=== PATIENT | female | born 1960 | race Caucasian/White ===

== ENCOUNTER 2021-01-28 10:14 | Outpatient (REF) | payer OTHER, SELFPAY ==
[2021-01-28 10:55] LABS: Blood Urea Nitrogen 23 mg/dL (9-16)
== END 2021-01-28 10:15 | disposition home or self-care (01) ==
LOC: HO.LNP 10:14
PROVIDERS: PCP Internal Medicine; Visit Provider Internal Medicine
DX: R79.9 Abnormal finding of blood chemistry, unspecified (principal)
CPT/HCPCS: 84520

== ENCOUNTER 2021-06-09 10:15 | Outpatient (REF) | payer OTHER, SELFPAY ==
[2021-06-09 10:37] LABS: Estimated Average Glucose 117 mg/dL; Hemoglobin A1c % 5.7 %
[2021-06-09 10:59] LABS: Alanine Aminotransferase 26 U/L (0-31); Albumin Level 4.5 g/dL (3.5-5.0); Alkaline Phosphatase 109 U/L (39-117); Aspartate Amino Transferase 28 U/L (5-31); Bilirubin Direct 0.3 mg/dL (0.0-0.5); Bilirubin Total 0.7 mg/dL (0.0-1.0); Cholesterol 170 mg/dL; Glucose Fasting 101 mg/dL (60-99); HDL Cholesterol 81 mg/dL; LDL Cholesterol Calculated 70 mg/dl; Total Protein 7.4 g/dL (6.5-8.0); Triglycerides 95 mg/dL
[2021-06-09 11:28] LABS: Reflex LDLD? No
== END 2021-06-09 10:16 | disposition home or self-care (01) ==
LOC: HO.LNP 10:15
PROVIDERS: Visit Provider Internal Medicine
DX: R73.09 Other abnormal glucose (principal); E78.00 Pure hypercholesterolemia, unspecified
CPT/HCPCS: 80061; 80076; 82947; 83036

== ENCOUNTER 2021-07-04 11:46 | Day surgery (SDC) | payer OTHER, SELFPAY ==
[2021-06-30 10:19] VITALS: BMI 35.4
--- NOTE | 2021-07-03 10:48 | HO.ANESPROP2 ---
Documented by User: Lacey Jackson 07/03/21 10:49 HPI - Anesthesia Eval Consult details Narrative: 61yo F for Colonoscopy PMFSH Past Medical History Medical History Elevated cholesterol HTN (hypertension) Hx of gout Surgical History Surgical History H/O colonoscopy Hx of section Social History Social History Patient Tobacco Use Status: Tobacco use Unknown Advance Directives Information Provided: No Meds Allergies Allergy/AdvReac Type Severity Reaction Status Date / Time lisinopril Allergy Unknown Unknown Verified 07/04/21 12:27 Home Medications Medication Instructions Recorded Confirmed Last Taken Type calcium carbonate 600 mg(1,500 1 tab PO DAILY 06/30/21 06/30/21 Unknown History mg)-vitamin D3 800 unit chewable tablet (Caltrate 600 plus D) cod liver oil 1 cap PO DAILY 06/30/21 06/30/21 06/27/21 History glucosamine sulfate 500 mg tablet 500 mg PO TID 06/30/21 06/30/21 06/27/21 History (Glucosamine) lecithin 1,200 mg capsule 1,200 mg PO DAILY 06/30/21 06/30/21 Unknown History omega-3 fatty acids-vitamin E 1 cap PO DAILY 06/30/21 06/30/21 06/27/21 History 1,000 mg-5 unit capsule allopurinol 300 mg tablet 1 tab PO DAILY 07/04/21 07/04/21 Unknown History amlodipine 5 mg tablet 1 tab PO DAILY 07/04/21 07/04/21 07/04/21 06:30 History atorvastatin 20 mg tablet 1 tab PO DAILY 07/04/21 07/04/21 Unknown History valsartan 320 1 tab PO DAILY 07/04/21 07/04/21 07/04/21 06:30 History mg-hydrochlorothiazide 12.5 mg tablet Exam Exam Date and Time: July 03, 2021 1048 Height,Weight and Vital Signs: Height 5 ft 2 in Weight 87.997 kg Assessment and Plan Assessment Anesthesia Assessment: Chart Reviewed Documented by User: Lizzie Alejandro 07/04/21 12:55 PMFSH Past Medical History Medical History Elevated cholesterol HTN (hypertension) Hx of gout Functional capacity: independent ambulation Patient : No Family History Family history of problems with anesthesia: No Surgical History Surgical History H/O colonoscopy Hx of section Social History Social History Patient Tobacco Use Status: Tobacco use Unknown Advance Directives Information Provided: No Meds Allergies Allergy/AdvReac Type Severity Reaction Status Date / Time lisinopril Allergy Unknown Unknown Verified 07/04/21 12:27 Home Medications Medication Instructions Recorded Confirmed Last Taken Type calcium carbonate 600 mg(1,500 1 tab PO DAILY 06/30/21 06/30/21 Unknown History mg)-vitamin D3 800 unit chewable tablet (Caltrate 600 plus D) cod liver oil 1 cap PO DAILY 06/30/21 06/30/21 06/27/21 History glucosamine sulfate 500 mg tablet 500 mg PO TID 06/30/21 06/30/21 06/27/21 History (Glucosamine) lecithin 1,200 mg capsule 1,200 mg PO DAILY 06/30/21 06/30/21 Unknown History omega-3 fatty acids-vitamin E 1 cap PO DAILY 06/30/21 06/30/21 06/27/21 History 1,000 mg-5 unit capsule allopurinol 300 mg tablet 1 tab PO DAILY 07/04/21 07/04/21 Unknown History amlodipine 5 mg tablet 1 tab PO DAILY 07/04/21 07/04/21 07/04/21 06:30 History atorvastatin 20 mg tablet 1 tab PO DAILY 07/04/21 07/04/21 Unknown History valsartan 320 1 tab PO DAILY 07/04/21 07/04/21 07/04/21 06:30 History mg-hydrochlorothiazide 12.5 mg tablet Exam Airway TM Dist: >3cm Neck ROM: Full Heart: RRR Lungs: CTA Assessment and Plan Final Anesthetic Review Family History of Problems with Anesthesia: No
[2021-07-04 12:35] VITALS: BP 145/80; PULSE 107; RESP 16; TEMP 36.6; O2SAT 99
[2021-07-04] MEDS: Lactated Ringers 1,000 ML 100 ML IVCONT (12:44)
--- NOTE | 2021-07-04 13:12 | MHC.SHP ---
Pre-Procedural Eval Section A Date of Service: 07/04/21 The patient is an INPATIENT: No Changes since office visit: No Cold of Flu in the past 2 weeks, No New Medical Problems, No Changes in Medication and No Patient answered all questions The History & Physical has been completed within 30 days and I have reviewed it.: Yes Section B Chief Complaint: screening Allergies: Allergies Allergy/AdvReac Type Severity Reaction Status Date / Time lisinopril Allergy Unknown Unknown Verified 07/04/21 12:27 Plan I have reviewed the history and physical and performed a pertinent physical examination on my patient. No changes have occurred unless specified.
--- NOTE | 2021-07-04 13:32 | P.BOP_ITS ---
Brief Operative Note Date of Service: 07/04/21 Pre-op diagnosis: screening Post-op diagnosis: same Surgeon: Alberto Ayala Anesthesia: MAC Was an [facility] used for this Procedure?: No Estimated blood loss (mL): 0 Pathology: none sent Condition: stable Disposition: PACU
[2021-07-04 13:33] VITALS: BP 98/52; PULSE 69; RESP 16; TEMP 36.3; O2SAT 100
[2021-07-04 13:45] VITALS: BP 110/56; PULSE 73; RESP 16; TEMP 36.3; O2SAT 99
--- NOTE | 2021-07-04 13:56 | OP_ITS ---
SURGEON: Alberto Ayala MD INDICATIONS: Colon cancer screening. PREOPERATIVE DIAGNOSIS: POSTOPERATIVE DIAGNOSIS: PROCEDURE PERFORMED: Colonoscopy to the terminal ileum. ESTIMATED BLOOD LOSS: COMPLICATIONS: ANESTHESIA: Monitored anesthesia care. ASSISTANTS: SPECIMENS: DESCRIPTION OF PROCEDURE: History and physical performed. The risks and benefits of the procedure were explained to the patient, and informed consent was obtained. The patient was placed in left lateral decubitus position. A digital rectal exam was performed and it was found to be normal. The Olympus pediatric video colonoscope was introduced into the rectum and advanced to the cecum without difficulty. The cecum was identified by transillumination, palpation, and identification of ileocecal valve. Examination was performed. The scope was removed. She tolerated the procedure well and was transferred to the recovery area in stable condition. FINDINGS: The terminal ileum was normal. The visualized colonic mucosa was normal. The quality of the prep was good. No polyps were identified. There was a 3 cm lipoma in the right colon. Retroflexed examination showed some small internal hemorrhoids. IMPRESSION: Normal colonoscopy. RECOMMENDATIONS: 1. Follow up as needed. 2. Repeat colonoscopy is recommended in 10 years for average-risk individuals. MD ELIU Pena/ZHANG / [phone]
== END 2021-07-04 14:40 | disposition home or self-care (01) ==
PROVIDERS: PCP Internal Medicine; Visit Provider Internal Medicine Gastroenterology
PROC: 0DJD8ZZ Inspection of Lower Intestinal Tract, Via Natural or Artificial Opening Endoscopic (ICD-10-PCS; CPT 45378; principal; 2021-07-04 13:20)
DX: Z12.11 Encounter for screening for malignant neoplasm of colon (principal); K64.8 Other hemorrhoids; D17.5 Benign lipomatous neoplasm of intra-abdominal organs; I10 Essential (primary) hypertension; E78.00 Pure hypercholesterolemia, unspecified; Z79.899 Other long term (current) drug therapy
CPT/HCPCS: 45378

== ENCOUNTER 2021-07-24 12:46 | Outpatient (REF) | payer OTHER, SELFPAY ==
--- NOTE | ~2021-07-24 | MM_ITS ---
EXAMINATION: BONE DENSITOMETRY CLINICAL INDICATION: Estrogen deficiency. COMPARISON: None (current study represents initial baseline exam). TECHNIQUE: Using a [employer] DXA System (software version: 13.1) manufactured by [employer], dual-energy x-ray absorptiometry was performed of the spine and left hip. The images are of good technical quality. Summary results are attached. FINDINGS: AP SPINE L1-L4: BMD 1.231 g/cm2, Z-score 0.9, T-score 0.4, normal. LEFT FEMUR, NECK: BMD 0.926 g/cm2, Z-score 0.0, T-score -0.8, normal. LEFT FEMUR, TOTAL: BMD 1.084 g/cm2, Z-score 1.0, T-score 0.6, normal. IDENTIFIED RISK FACTORS: Menopause. HISTORY OF FRACTURE: None listed. MEDICATIONS: Calcium supplements or multivitamin, vitamin D. MM/XR DEXA axial skeleton IMPRESSION: 1. DIAGNOSIS: Normal bone density based on the lowest T-score value of -0.8 in the femoral neck applying World Health Organization criteria. 2. 10-YEAR FRACTURE RISK PREDICTION, FRAX: Major osteoporotic fracture (clinical spine, forearm, hip or shoulder) 6.8%. Hip fracture 0.3%. 3. Treatment Recommendations: NOF guidelines recommend consideration for treatment in postmenopausal women and men age 50 and older presenting with the following: -A hip or vertebral (clinical or morphometric) fracture. -T-score less than or equal to -2.5 at the femoral neck or spine after appropriate evaluation to exclude secondary causes. -Low bone mass at the hip or spine and a 10-year fracture probability by FRAX of greater than or equal to 3% for hip fracture or greater than or equal to 20% for major osteoporotic fracture based on the [place] adapted WHO algorithm. 4. Other Recommendations: All treatment decisions require clinical judgment and consideration of individual patient factors, including patient preferences, comorbidities, previous drug use, risk factors not captured in the FRAX model (e.g. frailty, falls, vitamin D deficiency, increased bone turnover, interval significant decline in bone density) and possible under or overestimation of fracture risk by FRAX. FUTURE SCAN RECOMMENDATION: People with diagnosed cases of osteoporosis or at high risk for fracture should have regular bone mineral density tests. For patients eligible for Medicare, routine testing is allowed once every 2 years. The testing frequency can be increased to one year for patients who have rapidly progressing disease, those who are receiving or discontinuing medical therapy to restore bone mass, or have additional risk factors.
== END 2021-07-24 12:47 | disposition home or self-care (01) ==
LOC: HO.MAMMO 12:46
PROVIDERS: PCP Internal Medicine; Visit Provider Internal Medicine
DX: Z13.820 Encounter for screening for osteoporosis (principal); E28.39 Other primary ovarian failure; Z78.0 Asymptomatic menopausal state
CPT/HCPCS: 77080

== ENCOUNTER 2021-12-22 11:13 | Outpatient (REF) | payer OTHER, SELFPAY ==
[2021-12-22 11:16] LABS: MANUAL DIFF FLAG NO
[2021-12-22 11:24] LABS: Basophils Absolute Auto 0.1 X10*3/uL (0.0-0.2); Basophils Percent Auto 0.9 % (0-2); Eosinophils Absolute Auto 0.4 X10*3/uL (0.0-0.4); Eosinophils Percent Auto 4.9 % (0-4); Hematocrit 37.1 % (37.0-47.0); Hemoglobin 11.7 g/dl (12.0-16.0); Imm Gran Abs Auto 0.09 X10*3/uL (0.00-0.03); Imm Gran Pct Auto 1.1 % (0.0-0.4); Lymphocytes Absolute Auto 1.7 X10*3/uL (1.2-4.9); Lymphocytes Percent Auto 20.1 % (20-40); Mean Corpuscular HGB Conc 31.5 g/dl (31.0-35.0); Mean Corpuscular Hemoglobin 28.7 pg (27.0-33.0); Mean Corpuscular Volume 91.2 fL (80.0-98.0); Mean Platelet Volume 10.6 fL (9.4-12.3); Monocytes Absolute Auto 0.8 X10*3/uL (0.1-1.2); Monocytes Percent Auto 9.3 % (2-11); Neutrophils Absolute Auto 5.5 x10*3/uL (2.0-8.3); Neutrophils Percent Auto 63.7 % (45-73); Platelet Count 176 X10*3/uL (160-400); Red Blood Count 4.07 X10*6/uL (4.20-5.50); Red Cell Distribution Width 15.5 % (11.0-16.0); White Blood Count 8.6 X10*3/uL (4.8-10.8)
[2021-12-22 11:35] LABS: Estimated Average Glucose 114 mg/dL; Hemoglobin A1c % 5.6 %
[2021-12-22 11:48] LABS: Appearance Urine CLEAR; Color Urine YELLOW; Glucose Urine UA NEG (NEG); Leukocyte Esterase Urine NEG (NEG); Nitrite Urine NEG (NEG); Urine Blood NEG (NEG); Urine Ketones NEG (NEG); Urine Protein NEG (NEG-TRACE)
[2021-12-22 12:28] LABS: Creatinine Urine 82.53 mg/dL; Microalbum/Creatinine Ratio Ur 12.1 ug/mg cr
[2021-12-22 12:31] LABS: Alanine Aminotransferase 27 U/L (0-31); Albumin Level 4.5 g/dL (3.5-5.0); Alkaline Phosphatase 102 U/L (39-117); Anion Gap 14 (12-20); Aspartate Amino Transferase 22 U/L (5-31); Bilirubin Total 0.6 mg/dL (0.0-1.0); Blood Urea Nitrogen 33 mg/dL (9-16); Calcium 10.1 mg/dL (8.4-10.2); Carbon Dioxide 28 mmol/L (22-29); Chloride 105 mmol/L (96-108); Cholesterol 163 mg/dL; Estimated Glomerular Filt Rate > 60; Glucose Fasting 102 mg/dL (60-99); HDL Cholesterol 64 mg/dL; LDL Cholesterol Calculated 86 mg/dl; Potassium 3.8 mmol/L (3.3-5.1); Sodium 143 mmol/L (135-145); Total Protein 7.4 g/dL (6.5-8.0); Triglycerides 65 mg/dL
== END 2021-12-22 11:14 | disposition home or self-care (01) ==
LOC: HO.LNP 11:13
PROVIDERS: PCP Internal Medicine; Visit Provider Internal Medicine
DX: Z00.00 Encounter for general adult medical examination without abnormal findings (principal); I10 Essential (primary) hypertension; R73.03 Prediabetes; E78.00 Pure hypercholesterolemia, unspecified
CPT/HCPCS: 80053; 80061; 81003; 82043; 83036; 85025

== ENCOUNTER 2022-04-21 11:20 | Outpatient (REF) | payer OTHER, SELFPAY ==
[2022-04-21 11:59] LABS: Blood Urea Nitrogen 20 mg/dL (9-16); Estimated Glomerular Filt Rate > 60
== END 2022-04-21 11:21 | disposition home or self-care (01) ==
LOC: HO.LNP 11:20
PROVIDERS: Visit Provider Internal Medicine
DX: R79.9 Abnormal finding of blood chemistry, unspecified (principal)
CPT/HCPCS: 82565; 84520

== ENCOUNTER 2022-08-07 10:42 | Outpatient (REF) | payer OTHER, SELFPAY ==
[2022-08-07 11:06] LABS: Alanine Aminotransferase 27 U/L (0-31); Albumin Level 4.5 g/dL (3.5-5.0); Alkaline Phosphatase 92 U/L (39-117); Aspartate Amino Transferase 24 U/L (5-31); Bilirubin Direct 0.2 mg/dL (0.0-0.5); Bilirubin Total 0.5 mg/dL (0.0-1.0); Cholesterol 166 mg/dL; Glucose Fasting 99 mg/dL (60-99); HDL Cholesterol 60 mg/dL; LDL Cholesterol Calculated 92 mg/dl; Total Protein 7.2 g/dL (6.5-8.0); Triglycerides 71 mg/dL
[2022-08-07 11:41] LABS: Estimated Average Glucose 114 mg/dL; Hemoglobin A1c % 5.6 %
== END 2022-08-07 10:43 | disposition home or self-care (01) ==
LOC: HO.LNP 10:42
PROVIDERS: Visit Provider Internal Medicine
DX: R73.03 Prediabetes (principal); E78.00 Pure hypercholesterolemia, unspecified
CPT/HCPCS: 80061; 80076; 82947; 83036

== ENCOUNTER 2023-02-19 11:01 | Outpatient (REF) | payer OTHER, SELFPAY ==
[2023-02-19 11:07] LABS: MANUAL DIFF FLAG NO
[2023-02-19 11:46] LABS: Basophils Absolute Auto 0.1 X10*3/uL (0.0-0.2); Basophils Percent Auto 0.7 % (0-2); Eosinophils Absolute Auto 0.2 X10*3/uL (0.0-0.4); Eosinophils Percent Auto 2.9 % (0-4); Hematocrit 39.6 % (37.0-47.0); Hemoglobin 12.7 g/dl (12.0-16.0); Imm Gran Abs Auto 0.05 X10*3/uL (0.00-0.03); Imm Gran Pct Auto 0.7 % (0.0-0.4); Lymphocytes Absolute Auto 1.5 X10*3/uL (1.2-4.9); Lymphocytes Percent Auto 20.2 % (20-40); Mean Corpuscular HGB Conc 32.1 g/dl (31.0-35.0); Mean Corpuscular Hemoglobin 28.2 pg (27.0-33.0); Mean Platelet Volume 11.1 fL (9.4-12.3); Monocytes Absolute Auto 0.6 X10*3/uL (0.1-1.2); Monocytes Percent Auto 7.8 % (2-11); Neutrophils Absolute Auto 5.1 x10*3/uL (2.0-8.3); Neutrophils Percent Auto 67.7 % (45-73); Platelet Count 188 X10*3/uL (160-400); Red Cell Distribution Width 15.2 % (11.0-16.0); White Blood Count 7.6 X10*3/uL (4.8-10.8)
[2023-02-19 11:59] LABS: Alanine Aminotransferase 20 U/L (0-31); Albumin Level 4.5 g/dL (3.5-5.0); Alkaline Phosphatase 90 U/L (39-117); Anion Gap 14 (12-20); Aspartate Amino Transferase 21 U/L (5-31); Bilirubin Total 0.9 mg/dL (0.0-1.0); Blood Urea Nitrogen 25 mg/dL (9-16); Calcium 9.9 mg/dL (8.4-10.2); Carbon Dioxide 28 mmol/L (22-29); Chloride 105 mmol/L (96-108); Cholesterol 147 mg/dL; Estimated Glomerular Filt Rate > 60; Glucose Fasting 105 mg/dL (60-99); HDL Cholesterol 61 mg/dL; LDL Cholesterol Calculated 74 mg/dl; Sodium 143 mmol/L (135-145); Triglycerides 64 mg/dL
[2023-02-19 12:01] LABS: Appearance Urine Clear; Color Urine Yellow; Glucose Urine UA Negative (Negative); Leukocyte Esterase Urine Trace (Negative); Nitrite Urine Negative (Negative); UMIC TRIGGER UACC YES; Urine Blood Negative (Negative); Urine Ketones Negative (Negative); Urine Protein Negative (Neg-Trace)
[2023-02-19 12:06] LABS: Bacteria Urine None Seen (None Seen); Hyaline Casts Urine 0-2 /LPF (0-2); RBC Urine 0-2 /HPF (0-2); Squamous Epithelial Cell Urine 0-2 /HPF (0-2); WBC Urine 0-5 /HPF (0-5)
[2023-02-19 12:08] LABS: Estimated Average Glucose 120 mg/dL; Hemoglobin A1c % 5.8 %
[2023-02-19 12:16] LABS: Creatinine Urine 71.91 mg/dL; Microalbumin Urine < 5.0 mg/L
== END 2023-02-19 11:02 | disposition home or self-care (01) ==
LOC: HO.LNP 11:01
PROVIDERS: Visit Provider Internal Medicine
DX: Z00.00 Encounter for general adult medical examination without abnormal findings (principal); I10 Essential (primary) hypertension; R73.03 Prediabetes; E78.00 Pure hypercholesterolemia, unspecified
CPT/HCPCS: 80053; 80061; 81001; 82043; 83036; 85025

== ENCOUNTER 2023-08-19 10:54 | Outpatient (REF) | payer OTHER, SELFPAY ==
[2023-08-19 10:57] LABS: MANUAL DIFF FLAG NO
[2023-08-19 11:53] LABS: Glucose Fasting 100 mg/dL (60-99)
[2023-08-19 12:04] LABS: Basophils Absolute Auto 0.1 X10*3/uL (0.0-0.2); Basophils Percent Auto 1.1 % (0-2); Eosinophils Absolute Auto 0.2 X10*3/uL (0.0-0.4); Hemoglobin 12.3 g/dl (12.0-16.0); Imm Gran Abs Auto 0.08 X10*3/uL (0.00-0.03); Imm Gran Pct Auto 1.1 % (0.0-0.4); Lymphocytes Absolute Auto 1.4 X10*3/uL (1.2-4.9); Lymphocytes Percent Auto 20.2 % (20-40); Mean Corpuscular HGB Conc 32.4 g/dl (31.0-35.0); Mean Corpuscular Hemoglobin 29.1 pg (27.0-33.0); Mean Corpuscular Volume 89.8 fL (80.0-98.0); Monocytes Absolute Auto 0.6 X10*3/uL (0.1-1.2); Monocytes Percent Auto 8.2 % (2-11); Neutrophils Absolute Auto 4.6 x10*3/uL (2.0-8.3); Neutrophils Percent Auto 66.4 % (45-73); Platelet Count 189 X10*3/uL (160-400); Red Blood Count 4.23 X10*6/uL (4.20-5.50); Red Cell Distribution Width 15.3 % (11.0-16.0)
[2023-08-19 12:20] LABS: Cholesterol 147 mg/dL (<200); HDL Cholesterol 62 mg/dL (>40); LDL Cholesterol Calculated 72 mg/dL (<100); Triglycerides 69 mg/dL (<150)
[2023-08-19 12:26] LABS: Estimated Average Glucose 117 mg/dL; Hemoglobin A1c % 5.7 % (<6.0)
[2023-08-19 12:33] LABS: Reflex LDLD? No
== END 2023-08-19 10:55 | disposition home or self-care (01) ==
LOC: HO.LNP 10:54
PROVIDERS: Visit Provider Internal Medicine
DX: R73.03 Prediabetes (principal); E78.00 Pure hypercholesterolemia, unspecified
CPT/HCPCS: 80061; 82947; 83036; 85025

== ENCOUNTER 2024-02-24 11:13 | Outpatient (REF) | payer OTHER, SELFPAY ==
[2024-02-24 11:29] LABS: MANUAL DIFF FLAG NO
[2024-02-24 12:14] LABS: Appearance Urine Clear; Color Urine Yellow; Glucose Urine UA Negative (Negative); Leukocyte Esterase Urine Small (1+) (Negative); Nitrite Urine Negative (Negative); Specific Gravity - Urine 1.025 (1.005-1.025); UMIC TRIGGER UACC YES; Urine Blood Negative (Negative); Urine Ketones Negative (Negative); Urine Protein Negative (Neg-Trace)
[2024-02-24 12:22] LABS: Estimated Average Glucose 117 mg/dL; Hemoglobin A1c % 5.7 % (<6.0)
[2024-02-24 12:25] LABS: Bacteria Urine None Seen (None Seen); Basophils Percent Auto 0.6 % (0-2); Eosinophils Absolute Auto 0.2 X10*3/uL (0.0-0.4); Eosinophils Percent Auto 3.3 % (0-4); Hematocrit 39.5 % (37.0-47.0); Hemoglobin 12.9 g/dl (12.0-16.0); Hyaline Casts Urine 0-2 /LPF (0-2); Imm Gran Abs Auto 0.08 X10*3/uL (0.00-0.03); Imm Gran Pct Auto 1.2 % (0.0-0.4); Lymphocytes Absolute Auto 1.5 X10*3/uL (1.2-4.9); Lymphocytes Percent Auto 21.1 % (20-40); Mean Corpuscular HGB Conc 32.7 g/dl (31.0-35.0); Mean Corpuscular Hemoglobin 29.2 pg (27.0-33.0); Mean Corpuscular Volume 89.4 fL (80.0-98.0); Mean Platelet Volume 11.1 fL (9.4-12.3); Monocytes Absolute Auto 0.6 X10*3/uL (0.1-1.2); Monocytes Percent Auto 8.4 % (2-11); Neutrophils Absolute Auto 4.5 x10*3/uL (2.0-8.3); Neutrophils Percent Auto 65.4 % (45-73); Platelet Count 194 X10*3/uL (160-400); RBC Urine 0-2 /HPF (0-2); Red Blood Count 4.42 X10*6/uL (4.20-5.50); UACC Culture Trigger YES; WBC Urine 0-5 /HPF (0-5); White Blood Count 6.9 X10*3/uL (4.8-10.8)
[2024-02-24 12:26] LABS: Alanine Aminotransferase 23 U/L (0-31); Albumin Level 4.4 g/dL (3.5-5.0); Alkaline Phosphatase 97 U/L (39-117); Anion Gap 13 (12-20); Aspartate Amino Transferase 21 U/L (5-31); Bilirubin Total 0.6 mg/dL (0.0-1.0); Blood Urea Nitrogen 25 mg/dL (9-16); Carbon Dioxide 29 mmol/L (22-29); Chloride 107 mmol/L (96-108); Cholesterol 140 mg/dL (<200); Estimated Glomerular Filt Rate > 60; Glucose Fasting 93 mg/dL (60-99); HDL Cholesterol 60 mg/dL (>40); LDL Cholesterol Calculated 65 mg/dL (<100); Sodium 145 mmol/L (135-145); Total Protein 7.3 g/dL (6.5-8.0); Triglycerides 75 mg/dL (<150)
[2024-02-24 12:58] LABS: Creatinine Urine 115.15 mg/dL; Microalbum/Creatinine Ratio Ur 8.6 ug/mg cr (<30)
== END 2024-02-24 11:14 | disposition home or self-care (01) ==
LOC: HO.LNP 11:13
PROVIDERS: Visit Provider Internal Medicine
DX: Z00.00 Encounter for general adult medical examination without abnormal findings (principal); I10 Essential (primary) hypertension; R73.03 Prediabetes; E78.00 Pure hypercholesterolemia, unspecified
CPT/HCPCS: 80053; 80061; 81001; 82043; 82570; 83036; 85025; 87086

== ENCOUNTER 2024-10-12 10:38 | Outpatient (REF) | payer OTHER, SELFPAY ==
[2024-10-12 12:08] LABS: Alanine Aminotransferase 34 U/L (0-31); Albumin Level 4.3 g/dL (3.5-5.0); Alkaline Phosphatase 103 U/L (39-117); Aspartate Amino Transferase 31 U/L (5-31); Bilirubin Direct 0.3 mg/dL (0.0-0.5); Bilirubin Total 0.7 mg/dL (0.0-1.0); Cholesterol 149 mg/dL (<200); Glucose Fasting 95 mg/dL (60-99); HDL Cholesterol 61 mg/dL (>40); LDL Cholesterol Calculated 72 mg/dL (<100); Triglycerides 81 mg/dL (<150)
[2024-10-12 12:48] LABS: Reflex LDLD? No
[2024-10-12 14:25] LABS: Estimated Average Glucose 117 mg/dL; Hemoglobin A1c % 5.7 % (<6.0); Total Hemoglobin (HGBA1C) 3107.1739 umol/L
== END 2024-10-12 10:39 | disposition home or self-care (01) ==
LOC: HO.LNP 10:38
PROVIDERS: Visit Provider Internal Medicine
DX: R73.09 Other abnormal glucose (principal); E78.00 Pure hypercholesterolemia, unspecified
CPT/HCPCS: 80061; 80076; 82947; 83036

== ENCOUNTER 2025-04-13 10:23 | Outpatient (REF) | payer OTHER, SELFPAY ==
[2025-04-13 10:26] LABS: MANUAL DIFF FLAG NO
--- OUTSIDE RECORDS SUMMARY | 2025-04-13 10:41 | XMS_ITS | Patient Health Record ---
Author Organization Bayron Olsen MD Address [address] [place], [place] [id number] Care Team Providers Care Geophysical E Logger Name Role Phone Bayron Olsen Primary Care Provider Allergies Allergen (clinical drug ingredient) Drug/Non Drug Allergy documented on EMR Reaction Allergy Type Onset Date Status lisinopril Lisinopril cough Drug Allergy Activ e Results Component Value Reference Range Notes Liver Panel Reviewed date:10/12/2024 12:55:58 PM Interpretation: Performing Lab:[facility], [address] [place] [id number] Notes/Report: Bilirubin Total 0.7 0.0-1.0 mg/dL Bilirubin Direct 0.3 0.0-0.5 mg/dL Aspartate Amino Transferase 31 5-31 U/L Alanine Aminotransferase 34 0-31 U/L Total Protein 7.0 6.5-8.0 g/dL Albumin Level 4.3 3.5-5.0 g/dL Alkaline Phosphatase 103 39-117 U/L Glucose Fasting Reviewed date:10/12/2024 12:53:52 PM Interpretation: Performing Lab:[facility], [address] [place] [phone] Notes/Report: Glucose Fasting 95 60-99 mg/dL Lipid Panel with Reflex Reviewed date:10/12/2024 12:56:08 PM Interpretation: Performing Lab:[facility], [address] [place] [phone] Notes/Report: Triglycerides 81 <150 mg/dL Desirable Triglyceride: less than 150 mg/dL Borderline High Triglyceride 150-199 mg/dL High Triglyceride: 200-499 mg/dL Very High Triglyceride: greater than or equal to 5OO mg/dL Cholesterol 149 <200 mg/dL Desirable Cholesterol: less than 200 mg/dL Borderline High Cholesterol: 200-239 mg/dL High Cholesterol: greater than 239 mg/dL LDL Cholesterol Calculated 72 <100 mg/dL Desirable LDL: less than 100 mg/dL Near Optimal/Above Optimal LDL: 110-129 mg/dL Borderline High LDL: 130-159 mg/dL High LDL: 160-189 mg/dL Very High LDL: greater than or equal to 190 mg/dL HDL Cholesterol 61 >40 mg/dL Desirable HDL: greater than 40 mg/dL Note: This HDL assay may give artificially low results in patients with liver disease. Hemoglobin A1c Reviewed date:10/12/2024 03:16:41 PM Interpretation: Performing Lab:[address] [phone] Notes/Report: Hemoglobin A1c % 5.7 <6.0 % Hemoglobin A1C Reference Range Adults: 4.8 - 6.0 % Non diabetic: < 6.0 % Goal: < 7.0 % Additional Action Suggested: > 8.0 % Note: Hemoglobin A1c results are invalid for patients with abnormal amounts of HbF. Blood transfusions may impact the HbA1c concentration in the patient sample. Estimated Average Glucose 117 eAG = Estimated average glucose which is %A1C expressed as average glucose, using the formula of the V7J-Usavrhe Average Glucose study (ADAG), Diabetes Care, Vol.31,#8, Jun. 2007 Occult Blood, Stool, Guaiac Reviewed date:04/17/2024 02:28:30 PM Interpretation:Negative Performing Lab: Notes/Report: Negative Occult Blood, Stool, Guaiac Neg MAMMOGRAM DIGITAL BILATERAL SCREEN Reviewed date:08/04/2024 01:16:54 PM Interpretation:Negative Performing Lab: Notes/Report: Negative Hold Gold Reviewed date:10/12/2024 12:56:18 PM Interpretation: Performing Lab:[address] [phone] Notes/Report: Hold Gold See Note Specimen held untested for 24 hours; Call to request Chemistry testing. Hold Gold (Not yet reviewed by provider) Interpretation: Performing Lab:[address] [phone] Notes/Report: Hold Gold See Note Specimen held untested for 24 hours; Call to request Chemistry testing. Reason For Referral No Information Medications Medication SIG (Take, Route, Frequency, Duration) Notes Start Date End Date Status Atorvastatin Calcium 20 MG TAKE ONE TABLET BY MOUTH EVERY DAY Active Nystatin 792004 UNIT/GM 1 application to affected area Externally Twice a day for 30 days 04/14/2012 Not-Taking Coricidin HBP 10-325-2 MG 2 tablets ever y 4 hours as needed Orally Five times a day Not-Taking Allopurinol 300 MG TAKE 1 TABLET BY ADINA TH EVERY DAY for 90 Active Lecithin 1200 MG 1 capsule Orally Onc e a day Not-Taking Ibuprofen 800 MG TAKE 1 TABLET BY ADINA TH 3 TIMES DAILY WITH FOOD. for 30 Active Mjjfua-Rjkgfywng-RAS Complex - Orally Active Caltrate 600+D 600-400 MG-UNIT 1 tablet with food Orally Once a day Active Valsartan-hydroCHLOROthia zide 160-12.5 MG TAKE 1 TABLET BY MOUTH EVERY DAY Active amLODIPine Besylate 5 MG TAKE 1 TABLET B Y MOUTH EVERY DAY Active Immunizations Vaccine Route Administration Date Status Comme nts DECLINED, FLU Unknown 10/31/2013 Administered Covid Vaccine Unknown 02/08/2021 Administered Moderna C VS Covid Vaccine Unknown 03/08/2021 Administered Moderna Shingrix Unknown 04/12/2021 [facility]ered [facility] TDaP Unknown 06/02/2023 Administered [facility] Prevnar 20 Unknown 07/10/2023 [facility]ered [facility] Flu Vaccine Unknown 08/16/2014 Refused Flu Vaccine Unknown 09/05/2015 Refused Fluarix Quadrivalent Unknown 09/15/2016 Refused Fluarix Quadrivalent Unknown 09/28/2017 Refused Fluarix Quadrivalent Unknown 10/11/2018 Refused TDaP Unknown 05/16/2019 Refused PPSV23 (Pnemovax) Unknown 05/16/2019 Refused Fluarix Quadrivalent Unknown 11/14/2019 Refused Fluarix Quadrivalent Unknown 08/26/2020 Refused PPSV23 (Pnemovax) Unknown 08/26/2020 Refused Shingrix Unknown 08/26/2020 Refused Fluarix Quadrivalent Unknown 09/26/2020 Refused Fluarix Quadrivalent Unknown 02/20/2022 Refused Social History Tobacco Use: Social History Observation Description Date Details (start date - stop date) Never Smoker NA - NA Tobacco Use/Smoking Question Answer Notes Patient is a nonsmoker Additional Findings: Tobacco Non-User Cu rrent non-smoker, currently using no form of tobacco Alcohol Screen Question Answer Notes Did you have a drink containing alcohol in the p ast year? No Points 0 Interpretation Negative Problems Problem Type SNOMED Code ICD Code Onset Dates Problem Status W/U Status Risk Notes Problem 57985824 Venous insuffici ency (I87.2) Active confirmed Problem 55340178 Essential hypert ension (I10) Active confirmed Problem 5162795 Prediabetes (R73.09) Active confirmed Problem 239887005 Estrogen deficie ncy (E28.39) Active confirmed Problem 947723551 Abnormal mammogr am of right breast (R92.8) Active confirmed Problem 343583348 Pure hypercholesterolemia (E78.00) Active confirmed Problem 148493642 BMI 37.0-37.9, a dult (Z68.37) Active confirmed Problem 24930061 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 Problem 58476677 Stasis dermatiti s of both legs (I87.2) Active confirmed Problem 145048698 Acute gout invol ving toe of left foot, unspecified cause (M10.9) Active confirmed Problem 558959911 Old tear of meni scus of left knee, unspecified meniscus, unspecified tear type (M23.207) Active confirmed Problem 720491771 Adult general me dical exam (Z00.00) Active confirmed Vital Signs Blood pressure diastolic 78 mm Hg 10/20/2024 Height 61.25 in 10/20/2024 Blood pressure systolic 120 mm Hg 10/20/2024 Weight 209 lbs 10/20/2024 BMI 39.16 kg/m2 10/20/2024 Encounters Encounter Location Date Provider Diagnosis Bayron Olsen MD [address] [place] [id number] 10/12/2024 Bayron Olsen Prediabetes R73.09 a nd Pure hypercholesterolemia E78.00 Bayron Olsen MD [address] [place] [id number] 04/13/2025 Bayron Olsen Blood tests for rout ine general physical examination Z00.00 ; Essential hypertension I10 ; Prediabetes R73.09 and Pure hypercholesterolemia E78.00 Bayron Olsen MD [address] [place] [id number] 04/17/2024 Bayron Olsen Fungal skin infectio n B36.9 ; Annual physical exam Z00.00 ; Essential hypertension I10 ; Pure hypercholesterolemia E78.00 ; Old tear of meniscus of left knee, unspecified meniscus, unspecified tear type M23.207 ; Prediabetes R73.09 ; Colon cancer screening Z12.11 and Depression screening Z13.31 Bayron Olsen MD [address] [place] [id number] 10/20/2024 Bayron Olsen Prediabetes R73.09 ; Pure hypercholesterolemia E78.00 ; Skin lesion of face L98.9 and Essential hypertension I10 Assessments Encounter Date Diagnosis (ICD Code) Assessment Notes Treatment Notes Treatment Clinical Notes Section Notes 10/12/2024 Prediabetes (ICD-10 - R73.09) 10/12/2024 Pure hypercholesterolemia (ICD-10 - E78.00) 04/13/[address] ine general physical examination (ICD-10 - Z00.00) 04/17/2024 Fungal skin infectio n (ICD-10 - B36.9) will try lamisil, will contnue to monitor 04/17/2024 Annual physical exam (ICD-10 - Z00.00) labs reviewed and discussed with patient 10/20/2024 Prediabetes (ICD-10 - R73.09) talked about the serious diet that she needs to get on, will continue to monitor 10/20/2024 Pure hypercholesterolemia (ICD-10 - E78.00) good ldl on meds, stable, will continue current regiment 04/13/2025 Essential hypertensi on (ICD-10 - I10) 04/17/2024 Essential hypertensi on (ICD-10 - I10) doing well on meds. will continue current regiment 10/20/2024 Skin lesion of face (ICD-10 - L98.9) am concered about these and advised her to see her practice architect and to not pick at them 04/13/2025 Prediabetes (ICD-10 - R73.09) 04/17/2024 Pure hypercholesterolemia (ICD-10 - E78.00) stable, will continue current regiment 10/20/2024 Essential hypertensi on (ICD-10 - I10) well controlled, stable, will continue current regiment 04/13/2025 Pure hypercholesterolemia (ICD-10 - E78.00) 04/17/2024 Old tear of meniscus of left knee, unspecified meniscus, unspecified tear type (ICD-10 - M23.207) awaiting evaluation 04/17/2024 Prediabetes (ICD-10 - R73.09) stable, no need for medication at this time 04/17/2024 Colon cancer screeni ng (ICD-10 - Z12.11) guaiac negative 04/17/2024 Depression screening (ICD-10 - Z13.31) negative screen Plan Of Treatment Pending Test Test Name Order Date Electrocardiogram (EKG) 09/24/2016 Electrocardiogram (EKG) 09/30/2017 BONE DENSITY DEXA 06/16/2021 US BREAST LEFT 07/14/2022 Complete Blood Count Auto Diff Comprehensive [place]. Panel Fast 5 Lipid Panel 04/13/2025 Microalbumin, Random 04/13/2025 Hold Gold 04/13/2025 MM diagnostic mammo unilat LT 07/14/2022 Hemoglobin A1c 04/13/2025 UA ClnCatch+Micro w/rflx Cult 04/13/2025 Next Appt Details Provider Name:Bayron Ray ier, 04/19/2025 08:00:00 AM, [address] [place] [address], [address], [place], [place], [id number], Insurance Providers Payer Name Payer Address Payer Phone Subscriber Number Group Number Insured Name Patient Relationship to Insured Coverage Start Date Coverage End Date [address] [place] [phone] [id number] Ciarra Connor Self - patient is the insured 8 Medical (General) History Medical History History ICD Code Bronchitis asthma Refuses flu shot (10/07/12) bone density 06/29/13 - repeat in two year s pap smear - 07/2013; 08/2014 Dr. Whitman colonoscopy 2010 due in 10 years. colono scopy 2020 due in 10 years Intermittent asthma without complication , unspecified asthma severity J45.20 Intermittent asthma without complication , unspecified asthma severity colonoscopy 07/04/21 10 yr f/u Surgical History Surgery Date(Month/Year) also and 07/1986 Right breast biopsy 05/2007
--- OUTSIDE RECORDS SUMMARY | 2025-04-13 10:41 | XMS_ITS ---
[facility] Organization [facility] [place] Address [address] [facility] [place] [address] Care Team Providers Care Rn Liaison Name Role Phone Raúl ARELLANO, Bayron Primary Care Provider Joni Bonilla Latasha Unavailable [phone] Allergies Allergen (clinical drug ingredient) Drug/Non Drug Allergy documented on EMR Reaction Allergy Type Onset Date Status lisinopril Lisinopril cough Drug Allergy Activ e REASON FOR VISIT Foot pain, Painful nail(s) aggrevated by shoes causing difficulty standing/walking, Heel pain, Swelling Medications Medication SIG (Take, Route, Frequency, Duration) Notes Start Date End Date Status Lecithin Active Night Splint AFO - L1930 1 wear at rest for 30 days Active Valsartan-hydroCHLOROthiazi de 160-12.5 MG 1 tablet Orally Once a day for 30 day(s) Active Fish Oil Active Ciclopirox 8 % 1 application Edger Runner ally Once a day for 30 06/08/2024 Active amLODIPine Besylate 5 MG 1 tablet Orally Once a day for 30 day(s) Active Atorvastatin Calcium 20 MG 1 tablet Oral ly Once a day for 30 day(s) Active Compression Stockings 20-30mm Hg 1 pair wear daily for 30 days Active Allopurinol 300 MG 1 tablet Orally Once a day for 30 day(s) Active Vitamin E Active Caltrate 600+D Activ e Glucosamine Active Turmeric Active Multivitamin Active Social History Tobacco Use: Social History Observation Description Date Details (start date - stop date) Never Smoker NA - NA Tobacco Use/Smoking Question Answer Notes Are you a: nonsmoker Additional Findings: Tobacco Non-User Current no n-smoker Alcohol Screen Question Answer Notes Did you have a drink contain ing alcohol in the past year? Yes How often did you have a dri nk containing alcohol in the past year? Monthly or less (1 point) Points 1 Interpretation Negative Tobacco use other than smoking: Question Answer Notes Are you an other tobacco user? No Vital Signs Height 5ft2in in 06/08/2024 Weight 205 lbs 06/08/2024 BMI 37.49 kg/m2 06/08/2024 Encounters Encounter Location Date Provider Diagnosis [facility] [place] [address] [place] [address] 06/08/2024 Latasha Black Hypertrophy of bone, right ankle and foot M89.371 ; Plantar fasciitis of right foot M72.2 ; Metatarsalgia of right foot M77.41 ; Pain in right ankle and joints of right foot M25.571 ; Arthritis M19.90 ; Bursitis of right foot M77.51 ; Tinea unguium B35.1 ; Pain in right toe(s) M79.674 ; Pain in left toe(s) M79.675 ; Pain in right foot M79.671 ; Calcaneal spur, right foot M77.31 ; 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 and Edema, lower extremity R60.0 Assessments Encounter Date Diagnosis (ICD Code) Assessment Notes Treatment Notes Treatment Clinical Notes Section Notes 06/08/2024 Hypertrophy of bone, right ankle and foot (ICD-10 - M89.371) 06/08/2024 Plantar fasciitis of right foot (ICD-10 - M72.2) 06/08/2024 Metatarsalgia of right foot (ICD-10 - M77.41) 06/08/2024 Pain in right ankle and joints of right foot (ICD-10 - M25.571) 06/08/2024 Arthritis (ICD-10 - M19.90) 06/08/2024 Bursitis of right foot (ICD-10 - M77.51) 06/08/2024 Tinea unguium (ICD-10 - B35.1) 06/08/2024 Pain in right toe(s) (ICD-10 - M79.674) 06/08/2024 Pain in left toe(s) (ICD-10 - M79.675) 06/08/2024 Pain in right foot (ICD-10 - M79.671) 06/08/2024 Calcaneal spur, right foot (ICD-10 - M77.31) 06/08/2024 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) 06/08/2024 Edema, lower extremity (ICD-10 - R60.0) Plan Of Treatment Medication Medication Name Sig Start Date Stop Date Notes Ciclopirox 8 % 1 application Edger Runner ally Once a day for 30 06/08/2024 Compression Stockings 20-30m m Hg 1 pair wear daily for 30 days Next Appt Details Follow Up: prn, Reason: Provider Name:Latasha Bonilla , 06/07/2025 08:00:00 AM, [address] [place] [address], [id number], Progress Notes * Richard CONNOROB:1960 (64 yo F)Acc No.[id number]:06/08/2024 Progress Note Patient:?Ciarra Connor Provider:?Latasha Bonilla DPM :1960???Age:64 Y???Sex:Female D ate:06/08/2024 Address:[address] [place] [address] [place], [place] Pcp:Bayron Olsen MD Subjective: * Chief Complaints: * ???Foot painPainful nail(s) aggrevated by shoes causing difficulty standing/walkingHeel painSwelling * HPI: ???Foot Pain:?Nature:?aching , tenderness , burning.?Location:?, LEFT , Outside.?Duration:?several years.?Onset:?gradual , denies trauma.?Course:?improved , at 90%.?Aggrevated:?any pressure , standing , walking.?Treatments:?soaks, padding , innersoles.?Severity/Quality:?moderate.?Painful Nails:?Pt States Last PCP Visit:?Date:?04/12/2024 ?Treatments:?Topical Antifungal.?Heel pain:?Location:?Proximal plantar aspect of Heel, RIGHT.?Duration:?several weeks.?Course:?improved , at approximately 50 %.?Aggrevated:?standing, walking, walking first thing in the morning/after rest.?Treatments:?rest.?Swelling:?Location:?Both feet/leg.?Duration:?several weeks.?Course:?worse.? * ROS:?General/Constitutional:?Nausea?denies,?.?Vomiting?denies,?.?Hunger Thirst?denies,.?Loss appetite?denies,.?Chills?denies,.?Fatigue?denies.?Fever?denies.?Night Sweats?denies,?.?Unexplained weight loss?denies,?.?Unexplained weight gain?denies,.?HEENTM:?Dentures?denies,.?Dizziness?denies,?.?Glasses/contacts?admits,.?Retinopath y?denies,.?Blurred/double vision?denies,.?TMJ?denies.?Discharge/drainage?denies.?Implants?denies,?.?Sore throat?denies,?.?Dental implants?denies,?.?Hard of hearing ?denies,?.?Difficulty chewing/swallowing/speaking?denies,?.?Nose bleeds?denies.?Sore mouth?denies,?.?Respiratory:?On Oxygen?denies,.?Pneumonia/pleurisy?denies,?.?Bronchitis?denies,?.?Emphysema?josep es,.?Coughing?denies,?.?Cough blood?denies,.?Shortness of breath?denies,?.?Wheezing?denies,?.?Cardiovascular:?Pacemaker?denies,?.?MVP?denies,.?WPW?denies,?.?CHF?denies,?.?Heart attack?denies,?.?Septal defect?denies,?.?Rapid beat?denies,?.?Chest pain ?denies,.?Atrial Fib.?denies,.?Murmur/Palpitations?denies,.?Gastrointestinal:?Hemorrhoids?denies, denies.?Stomach/Abdominal pain?denies, denies.?Dark blood stool?denies, denies.?Irritable bowel ?denies, denies.?Constipation?denies, denies.?Diarrhea?denies, denies.?Hematology:?Swelling?denies, denies.?Clots?denies, denies.?Varicose Veins?denies, denies.?Bruising?denies, denies.?Bleeding problem?denies, denies.?Genitourinary:?Blood urine?denies, denies.?Frequent/Painfu/urination/bladder control?denies, denies.?Kidney stones?denies, denies.?Infection (UTI)?denies, denies.?Nephropathy?denies, denies.?sex trans dis (STD)?denies, denies.?Prostate?denies, denies.?Musculoskeletal:?Hammertoes?denies, denies.?Bunions?denies, denies.?Back Pain?denies, denies.?Muscle Cramps/ Resting?denies, denies.?Muscle cramps / walking?denies, denies.?Generalized aches and pains?admits, admits.?Weakness?denies, denies.?Integ.:?Garcia?denies,?.?Scars?denies.?Corns/calluses?admits,?.?Ingrown nails?denies.?Painful nails?admits.?Open Sores?denies,.?Rashes?denies, denies.?Neurologic:?Difficulty sleeping?denies, denies.?Brain disorder?denies, denies.?Numbness?denies, denies.?Balance trouble?denies, denies.?Confusion?denies, denies.?Fainting/blackouts?denies, denies.?Tingling?denies, denies.?Tremors?denies, denies.? * Medical History:? * Surgical History:? x3 * Hospitalization/Major Diagno stic Procedure:?Denies Past Hospitalization * Family History:?Mother: dece ased, diagnosed with Family history of arthritis, Unspecified essential hypertension.?Father: , stroke, heart attack, diagnosed with Diabetic - NIDDM, Unspecified essential hypertension, Unspecified heart disease.? * Social History:?Tobacco Use:?Tobacco Use/Smoking?Are you a:?nonsmoker ?Additional Findings: Tobacco Non-User?Current non-smoker ?Tobacco use other than smoking?Are you an other tobacco user??No ???Drugs/Alcohol:?Drugs?Have you used drugs other than those for medical reasons in the past 12 months??No ?Alcohol Screen?Did you have a drink containing alcohol in the past year??Yes ?How often did you have a drink containing alcohol in the past year??Monthly or less (1 point) ?Points?1 ?Interpretation?Negative ???Miscellaneous:?Caffeine: yes, 1-2 cups per day,. ?Children: yes, 3. ?no Exercise. ?Marital status: . 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 * Medications:?TakingLecithin Fish Oil Turmeric Glucosamine Caltrate 600+D Multivitamin Vitamin E Allopurinol 300 MG Tablet 1 tablet Orally Once a dayAtorvastatin Calcium 20 MG Tablet 1 tablet Orally Once a dayamLODIPine Besylate 5 MG Tablet 1 tablet Orally Once a dayValsartan-hydroCHLOROthiazide 160-12.5 MG Tablet 1 tablet Orally Once a dayNight Splint AFO - L1930 1 wear at restMedication List reviewed and reconciled with the patientTaking Lecithin Taking Fish Oil Taking Turmeric Taking Glucosamine Taking Caltrate 600+D Taking Multivitamin Taking Vitamin E Taking Allopurinol 300 MG Tablet 1 tablet Orally Once a dayTaking Atorvastatin Calcium 20 MG Tablet 1 tablet Orally Once a dayTaking amLODIPine Besylate 5 MG Tablet 1 tablet Orally Once a dayTaking Valsartan-hydroCHLOROthiazide 160-12.5 MG Tablet 1 tablet Orally Once a dayTaking Night Splint AFO - L1930 1 wear at restMedication List reviewed and reconciled with the patient * Allergies:?Lisinopril: cough yes[Allergies Verified] Objective: * Vitals:?Ht: 5ft2in, Wt:205, BMI:37.49, Shoe size: 7-8, Ht-cm: 157.48 cm, Wt-k.99 kg. * Examination: ???Orthopedic: ?MUSCLE STRENGTH:?5/5 all groups in a symmetrical fashion , B/L.?GAIT ABNORMALITY:?Pronated , abducted angle and base of gate , B/L , antalgic.?FOOT MORPHOLOGY:?Pes Planus structure , Rigid , B/L , Pes Planus structure, Decreased Ankle joint dorsiflexion ROM, knee extended.?TAILOR'S BUNION:?Enlarged, less painful, prominent, less? inflamed 5th Metatarsal Base , RIGHT at approx. 90 % less.?DIGITAL DEFORMITIES:?Digital contracture, PIPJ, 2-5 B/L, incompl-reducible with WB, or to push-up test, no over, nor underlapping , Partial?Syndactyly noted 2,3 b/l.?Nails: ?NAILS are:?Elongated, overgrown, dystrophic, lytic, greater than 3mm thick, discolored and friable with crumbly malodorous subungual debris, with pain on palpation , 1-5 B/L , proximal clearing of nail 20 percent.?Heel Pain: ?INSPECTION:? Pain on Palpation to Plantar Fascia med. and central bands, intrinsic musc., infra-calcaneal bursa, and med calc tubercle , RIGHT foot, States approximately 50 % LESS, No pain: posterior/superior heel, achilles bursa/tendon, sinus tarsi, peroneals, or with lateral heel compression; no limited STJ ROM, calor, or ecchymosis, States approximately 50_ % LESS.?Vascular: ?EDEMA:?2/4 , B/L , non-pitting.?ISIDRO'S SIGN:?absent, B/L.?PALPABLE CORDS:?absent, B/L.? 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 Plan: * Treatment: 2.?Edema, lower extremity? Start Compression Stockings closed toe- knee high, 20-30mm Hg, 1 pair, wear, daily, 30 days, 2, Refills 2.?? * Procedure Codes:? * Preventive Medicine:? ??Counseling:?Discussion:?-14: Office or other outpatient visit for the evaluation and management of an established patient, which required a medically appropriate history and/or examination and MODERATE level of DECISION MAKING for: 1 OR MORE CHRONIC PROBLEM(S) THATS WORSENING, 2 STABLE CHRONIC PROBLEMS, A NEWLY DIAGNOSED PROBLEM WITH UNCERTAIN PROGNOSIS, AN ACUTE COMPLICATED INJURY WITH MULTIPLE TREATMENT OPTIONS, OR AN ACUTE PROBLEM WITH ACCOMPANYING SYSTEMIC SYMPTOMS, THAT POSE(S) A MODERATE RISK OF MORBIDITY. THIS CONDITION MAY ALSO INCLUDE RX DRUG MANAGEMENT, OR A DECISON FOR MINOR SURGERY. The visit on the day of the encounter encompassed interpreting the data and educating the patient as to the nature of their condition, treatment options available according to their individual PMH, meds, allergies, and overall health/living conditions, as well as any potential risks or complications that may occur from a failure to adhere to, and participate in, the recommended course of therapy. The discussion included a complete verbal, and/or written explanation of the examination results, any x-rays taken, the proposed diagnosis, and outline of the treatment plan. A schedule for future care needs was also explained. The patient verbalized an understanding of the instructions at this time and agreed to be an active participant in their treatment. If the patient should think of any questions or concerns after the visit, I have encouraged the patient to call the office.?Edema:?I explained to the patient the possible etiologies for Edema, including genetic, surgery, infection, medications, heart disease, kidney disease, excess dietary salt, and various cancer treatments. We discussed the risks/benefits of the treatment options available including rest, elevation, OTC compression stockings, Rx compression stockings, Unna Boot application, diet modification to limit salt intake, and Rx segmental compression boots provided the absence of CHD in the patients medical history. The advantages and disadvantages of each option were discussed and the patients questions re: risk of infection(cellulitis), medications, diet, and the daily use of compression stockings(not to be worn at night), and consistency in these home treatment regimens for optimal success were answered to their verbally confirmed satisfaction. Given the risk for vessel clotting disease, the patient was instructed to go immediately to the ER of hospital should they experience any calf pain, SOB, or discomfort. Any changes to the patients medication regimen will be performed by the PCP or patients kidney/heart/cancer specialist. The patient has elected to receive compression stockings. Such were Rxed today with instructions for use.?F/U Fungal nails:?Reviewed with the patient the time needed before we start seeing results with the topical medication. Discussed the results that we hope to see . We discussed the duration of time needed to see results., Nail debridement performed extensively to reduce/remove overall nail length and girth, subungual debris, and necrotic tissue, by manual and electrical means with use of a nail nipper and/or dremel, to more viable healthy nail plate or bed tissue. Silver nitrate used for any petechial bleeding as necessary.?Heel pain:?Discussed other tx options for the patients condition, Given recent successful results to treatment, the patient wishes to continue with the present plan for their condition.?Metatarsalgea:?Discussed other tx options for the patients condition, given recent successful results to treatment, the patient wishes to continue with the present plan for their condition.? * Follow Up:?prn * Images: * Sign off status: Completed true * Provider:?Latasha Bonilla DPM Date:?2023 Generated for Latoya sy/Audra/Deborah on:?04/13/2025 10:41 AM EDT History and Physical Notes * HPI (History of Present Illness) Category Sub-Category Detail Notes Category Not es Heel pain Duration: several weeks Location: Proximal plantar asp ect of Heel, RIGHT Aggravated: standing, walking, w alking first thing in the morning/after rest Course: improved , at approx imately 50 % Treatments: rest Painful Nails Treatments: Topical Antifungal Pt States Last PCP Visit: Date:: 04/12/2024 Foot Pain Nature: aching , tenderness , burnin g Location: , LEFT , Outside Duration: several years Onset: gradual , denies tra jose manuel Course: improved , at 90% Aggravated: any pressure , stand ing , walking Treatments: soaks, padding , inn ersoles Severity/Quality: moderate Swelling Location: Both feet/leg Duration: several weeks Course: worse Examination Category Sub-Category Detail Notes Category Not es Orthopedic GAIT ABNORMALITY: Pronated , abd ucted angle and base of gate , B/L , antalgic FOOT MORPHOLOGY: Pes Planus structure , Rigid , B/L , Pes Planus structure, Decreased Ankle joint dorsiflexion ROM, knee extended DIGITAL DEFORMITIES: Digital contracture , PIPJ, 2-5 B/L, incompl-reducible with WB, or to push-up test, no over, nor underlapping , Partial Syndactyly noted 2,3 b/l TAILOR'S BUNION: Enlarged, less painf ul, prominent, less inflamed 5th Metatarsal Base , RIGHT at approx. 90 % less MUSCLE STRENGTH: 5/5 all groups in a symmetrical fashion , B/L Vascular EDEMA (C): 2/4 , B/L , non-pitting ISIDRO'S SIGN: absent, B/L PALPABLE CORDS: absent, B/L Nails NAILS are: Elongated, overg rown, dystrophic, lytic, greater than 3mm thick, discolored and friable with crumbly malodorous subungual debris, with pain on palpation , 1-5 B/L , proximal clearing of nail 20 percent Heel Pain INSPECTION: Pain on Palpatio n to Plantar Fascia med. and central bands, intrinsic musc., infra-calcaneal bursa, and med calc tubercle , RIGHT foot, States approximately 50 % LESS, No pain: posterior/superior heel, achilles bursa/tendon, sinus tarsi, peroneals, or with lateral heel compression; no limited STJ ROM, calor, or ecchymosis, States approximately 50_ % LESS
--- OUTSIDE RECORDS SUMMARY | 2025-04-13 10:41 | XMS_ITS ---
Author Organization Bayron Olsen MD Address [address] [place], [place] [id number] Care Team Providers Care Mat Puncher Name Role Phone Bayron Olsen Primary Care Provider Allergies Allergen (clinical drug ingredient) Drug/Non Drug Allergy documented on EMR Reaction Allergy Type Onset Date Status lisinopril Lisinopril cough Drug Allergy Activ e REASON FOR VISIT 6 MO F/U Medications Medication SIG (Take, Route, Frequency, Duration) Notes Start Date End Date Status Coricidin HBP 10-325-2 MG 2 tablets ever y 4 hours as needed Orally Five times a day Not-Taking Allopurinol 300 MG TAKE 1 TABLET BY ADINA TH EVERY DAY for 90 Active Ibuprofen 800 MG TAKE 1 TABLET BY ADINA TH 3 TIMES DAILY WITH FOOD. for 30 Active Kxzefx-Edvogccba-ZBB Complex - Orally Active Caltrate 600+D 600-400 MG-UNIT 1 tablet with food Orally Once a day Active Atorvastatin Calcium 20 MG TAKE ONE TABLET BY MOUTH EVERY DAY Active Nystatin 858623 UNIT/GM 1 application to affected area Externally Twice a day for 30 days 04/14/2012 Not-Taking Lecithin 1200 MG 1 capsule Orally Onc e a day Not-Taking Valsartan-hydroCHLOROthia zide 160-12.5 MG TAKE 1 TABLET BY MOUTH EVERY DAY Active amLODIPine Besylate 5 MG TAKE 1 TABLET B Y MOUTH EVERY DAY Active Vital Signs Blood pressure systolic 120 mm Hg 10/20/20 24 Blood pressure diastolic 78 mm Hg 024 Height 61.25 in 10/20/2024 Weight 209 lbs 10/20/2024 BMI 39.16 kg/m2 10/20/2024 Encounters Encounter Location Date Provider Diagnosis Bayron Olsen MD [address] [place], [place] [id number] 10/20/2024 Bayron Olsen Prediabetes R73.09 ; Pure hypercholesterolemia E78.00 ; Skin lesion of face L98.9 and Essential hypertension I10 Assessments Encounter Date Diagnosis (ICD Code) Assessment Notes Treatment Notes Treatment Clinical Notes Section Notes 10/20/2024 Prediabetes (ICD-10 - R73.09) talked about the serious diet that she needs to get on, will continue to monitor 10/20/2024 Pure hypercholesterolemia (ICD-10 - E78.00) good ldl on meds, stable, will continue current regiment 10/20/2024 Skin lesion of face (ICD-10 - L98.9) am concered about these and advised her to see her well tender and to not pick at them 10/20/2024 Essential hypertensi on (ICD-10 - I10) well controlled, stable, will continue current regiment Plan Of Treatment Medication Medication Name Sig Start Date Stop Date Notes Atorvastatin Calcium 20 MG TAKE ONE TABL ET BY MOUTH EVERY DAY Valsartan-hydroCHLOROthiazid e 160-12.5 MG TAKE 1 TABLET BY MOUTH EVERY DAY amLODIPine Besylate 5 MG TAKE 1 TABLET B Y MOUTH EVERY DAY Treatment Notes Assessment Notes Prediabetes talked about the ser ious diet that she needs to get on, will continue to monitor Pure hypercholesterolemia good ldl on me ds, stable, will continue current regiment Skin lesion of face am concered about th grady and advised her to see her well tender and to not pick at them Essential hypertension well controlled, stable, will continue current regiment Next Appt Details Provider Name:Bayron Ray ier, 04/19/2025 08:00:00 AM, [address], [address], [place], [place], [phone], Progress Notes * Ciarra CONNOR FDOB: (64 yo F)Acc No.[id number]:10/20/2024 Progress Notes Patient:?Ciarra Connor Provider:?Bayron Olsen MD :1960???Age:64 Y???Sex:Female D ate:10/20/2024 Address:[address] [place] [address], [id number] Subjective: * Chief Complaints: * ???6 MO F/U * HPI: ???Symptom(s):? patient is a 64 yo female here for 6 month follow up. * ROS:?General/Constitutional:?Denies?Chills.?Denies?Fatigue.?Denies?Fever.?Denies?Headache.?ENT:?Patient denies?decreased sense of smell , any loss of taste , sore throat.?Denies?Sore throat.?Respiratory:?Denies?Cough.?Denies?Shortness of breath at rest.?Denies?Shortness of breath with exertion.?Gastrointestinal:?Denies?Diarrhea.?Denies?Nausea.?Musculoskeletal:?Patient denies?muscle aches.?Peripheral Vascular:?Patient denies?red and blue toes.? * Medical History:? * Surgical History:? * Hospitalization/Major Diagno stic Procedure:? * Medications:?TakingGlucos-Ch ondroit-MSM Complex - Tablet Orally Caltrate 600+D 600-400 MG-UNIT Tablet 1 tablet with food Orally Once a dayAllopurinol 300 MG Tablet TAKE 1 TABLET BY MOUTH EVERY DAY Ibuprofen 800 MG Tablet TAKE 1 TABLET BY MOUTH 3 TIMES DAILY WITH FOOD. Atorvastatin Calcium 20 MG Tablet TAKE ONE TABLET BY MOUTH EVERY DAY Valsartan-hydroCHLOROthiazide 160-12.5 MG Tablet TAKE 1 TABLET BY MOUTH EVERY DAY amLODIPine Besylate 5 MG Tablet TAKE 1 TABLET BY MOUTH EVERY DAY Taking Rzlhvz-Kdvmsziig-TRB Complex - Tablet Orally Taking Caltrate 600+D 600-400 MG- UNIT Tablet 1 tablet with food Orally Once a dayTaking Allopurinol 300 MG Tablet TAKE 1 TABLET BY MOUTH EVERY DAY Taking Ibuprofen 800 MG Tablet TAKE 1 TABLET BY MOUTH 3 TIMES DAILY WITH FOOD. Taking Atorvastatin Calcium 20 MG Tablet TAKE ONE TABLET BY MOUTH EVERY DAY Taking Valsartan-hydroCHLOROthiazide 160-12.5 MG Tablet TAKE 1 TABLET BY MOUTH EVERY DAY Taking amLODIPine Besylate 5 MG Tablet TAKE 1 TABLET BY MOUTH EVERY DAY Not-Taking/PRNCoricidin HBP 10-325-2 MG Tablet 2 tablets every 4 hours as needed Orally Five times a dayLecithin 1200 MG Capsule 1 capsule Orally Once a dayNystatin 875018 UNIT/GM Cream 1 application to affected area Externally Twice a dayNot-Taking/PRN Coricidin HBP 10-325-2 MG Tablet 2 tablets every 4 hours as needed Orally Five times a dayNot-Taking/PRN Lecithin 1200 MG Capsule 1 capsule Orally Once a dayNot-Taking/PRN Nystatin 712425 UNIT/GM Cream 1 application to affected area Externally Twice a day * Allergies:?Lisinopril: cough yes[Allergies Verified] Objective: * Vitals:?Ht: 61.25, Wt:209, B NE:39.16, BP:120/78, Wt-k.8. * ???Past Orders: ???Lab:Glucose Fasting (Orde r Date - 10/12/2024) (Collection Date - 10/12/2024) ? Value Reference Range ?Glucose Fasting 95 60-9 9 - mg/dL ???Lab:Lipid Panel with Refl ex (Order 10/12/2024) (Collection Date - 10/12/2024) ? Value Reference Range ?Triglycerides 81 <150 - mg/dL ?Cholesterol 149 <200 - m g/dL ?LDL Cholesterol Calculated 72 <100 - mg/dL ?HDL Cholesterol 61 >40 - mg/dL ???Lab:Hemoglobin A1c (Order Date - 10/12/2024) (Collection Date - 10/12/2024) ? Value Reference Range ?Hemoglobin A1c % 5.7 <6. 0 - % ?Estimated Average Glucose 117 - mg/dL ???Lab:Liver Panel (Order Da te 10/12/2024) (Collection Date - 10/12/2024) ? Value Reference Range ?Bilirubin Total 0.7 0.0- 1.0 - mg/dL ?Bilirubin Direct 0.3 0.0 -0.5 - mg/dL ?Aspartate Amino Transferase 31 5-31 - U/L ?Alanine Aminotransferase 34 H 0-31 - U/L ?Total Protein 7.0 6.5-8. 0 - g/dL ?Albumin Level 4.3 3.5-5. 0 - g/dL ?Alkaline Phosphatase 103 39-117 - U/L * Examination: ???General Examination: ?GENERAL APPEARANCE:?alert, well hydrated, in no distress.?HEAD:?normocephalic.?LYMPH NODES:?normal patient feels as? though thwre is submandibular swelling but there is a normal exam and the area that she feels is the salivary glands which are normal.?SKIN:?abnormal with 2 lesions on the nose below the nose about 2 mm and red and smooth.? Assessment: * Assessment: 1.?Prediabetes - R73.09 (Leilani garcia)?2.?Pure hypercholesterolemia - E78.00?3.?Skin lesion of face - L98.9?4.?Essential hypertension - I10? Plan: * Treatment: 2.?Pure hypercholesterolemia ? Continue Atorvastatin Calcium Tablet, 20 MG, TAKE ONE TABLET BY MOUTH EVERY DAY.?? Notes: good ldl on meds, stable, will continue current regiment?? 3.?Skin lesion of face? Notes: am concered about these and advised her to see her well tender and to not pick at them?? 4.?Essential hypertension? Continue Valsartan-hydroCHLOROthiazide Tablet, 160-12.5 MG, TAKE 1 TABLET BY MOUTH EVERY DAY;?Continue amLODIPine Besylate Tablet, 5 MG, TAKE 1 TABLET BY MOUTH EVERY DAY.?? Notes: well controlled, stable, will continue current regiment?? * Procedure Codes:? * * Sign off status: Completed true * Provider:?Bayron Olsen MD Date:?12/20/2023 Generated for Latoya sy/Audra/eTransmitting on:?04/13/2025 10:41 AM EDT History and Physical Notes * HPI (History of Present Illness) Category Sub-Category Detail Notes Category Not es Symptom(s) patient is a 64 yo female here for 6 month follow up Examination Category Sub-Category Detail Notes Category Not es General Examination GENERAL APPEARANCE: alert, w ell hydrated, in no distress HEAD: normocephalic SKIN: abnormal with 2 lesi ons on the nose below the nose about 2 mm and red and smooth LYMPH NODES: normal patient feels as though thwre is submandibular swelling but there is a normal exam and the area that she feels is the salivary glands which are normal
--- OUTSIDE RECORDS SUMMARY | 2025-04-13 10:42 | XMS_ITS | Patient Health Record ---
Author Organization [facility] Address [address] [place] [address] Care Team Providers Care Protection Chief Industrial Plant Name Role Phone Raúl ARELLANO, Bayron Primary Care Provider Alberto Franklin Jr Allergies No Known Allergies Reason For Referral No Information Medications Medication SIG (Take, Route, Frequency, Duration) Notes Start Date End Date Status Glucosamine 500 MG 1 capsule with a jesse l Orally Three times a day for 30 day(s) Active Fish Oil [place]-3 1000 MG 1 capsule Orall y Once a day for 30 day(s) Active Cod Liver Oil - as directed Orally Active Caltrate 600+D3 600-800 MG-UNIT 1 tablet with a meal Orally Once a day for 30 day(s) Active Lecithin 1200 MG as directed Orally Active Valsartan Active Immunizations Vaccine Route Administration Date Status Comme nts Influenza Unknown 06/16/2021 Refused Social History Tobacco Use: Social History Observation Description Date Details (start date - stop date) Never Smoker NA - NA Tobacco Use/Smoking Question Answer Notes Patient is a nonsmoker Alcohol Screen Question Answer Notes Did you have a drink containing alcohol in the p ast year? No Points 0 Interpretation Negative Problems Problem Type SNOMED Code ICD Code Onset Dates Problem Status W/U Status Risk Notes Problem 998070243 Colon cancer screening (Z12.11) Active confirmed Problem 375059744 Encounter for other preprocedural examination (Z01.818) Active confirmed Problem 659576453 Long-term curren t use of high risk medication other than anticoagulant (Z79.899) Active confirmed Plan Of Treatment Future Test Test Name Order Date COLONOSCOPY 06/16/2021 Insurance Providers Payer Name Payer Address Payer Phone Subscriber Number Group Number Insured Name Patient Relationship to Insured Coverage Start Date Coverage End Date [facility] [address] [facility] [place], [place] [phone] [id number] BHUPINDER MCCRARY Self - patient is the insured Medical (General) History Medical History History ICD Code hypertension hypercholesterolemia Gout Patient denies any heart, lungs, diabete s or kidney issues. Surgical History Surgery Date(Month/Year) section x 2
--- OUTSIDE RECORDS SUMMARY | 2025-04-13 10:42 | XMS_ITS ---
Author [facility] [place] Address [address] [facility] [place] [address] Care Team Providers Care [employer] Caser Name Role Phone Raúl ARELLANO, Bayron Primary Care Provider Latasha Jackson Unavailable [phone] Allergies Allergen (clinical drug ingredient) Drug/Non Drug Allergy documented on EMR Reaction Allergy Type Onset Date Status lisinopril Lisinopril cough Drug Allergy Activ e REASON FOR VISIT Painful nail(s) aggrevated by shoes causing difficulty standing/walking, Heel pain, Swelling Medications Medication SIG (Take, Route, Frequency, Duration) Notes Start Date End Date Status Compression Stockings 20-30mm Hg 1 pair wear daily for 30 days Active Night Splint AFO - L1930 1 wear at rest for 30 days Active Valsartan-hydroCHLOROthiazi de 160-12.5 MG 1 tablet Orally Once a day for 30 day(s) Active amLODIPine Besylate 5 MG 1 tablet Orally Once a day for 30 day(s) Active Ciclopirox 8 % 1 application Embedded Nurse ally Once a day for 30 06/08/2024 Active Atorvastatin Calcium 20 MG 1 tablet Oral ly Once a day for 30 day(s) Active Allopurinol 300 MG 1 tablet Orally Once a day for 30 day(s) Active Vitamin E Active Multivitamin Active Caltrate 600+D Activ e Fish Oil Active Lecithin Active Glucosamine Active Turmeric Active Social History Tobacco Use: Social History [...] Are you an other tobacco user? No Problems Problem Type SNOMED Code ICD Code Onset Dates Problem Status W/U Status Risk Notes Problem Plantar fasciitis of right foot (6151049806813 9101) Plantar fasciitis of right foot (M72.2) Active confirmed Vital Signs Height 5ft 2in in 11/30/2024 Weight 205 lbs 11/30/2024 BMI 37.49 kg/m2 11/30/2024 Blood pressure systolic 144 mm Hg 11/30/19 25 Blood pressure diastolic 85 mm Hg 025 Encounters Encounter Location Date Provider Diagnosis [facility] [address] [address] 11/30/2024 Latasha Black Pain in right ankle and joints of right foot M25.571 ; Plantar fasciitis of right foot M72.2 ; Bursitis of right foot M77.51 ; Tinea unguium B35.1 ; Pain in right toe(s) M79.674 ; Pain in left toe(s) M79.675 ; Pain in right foot M79.671 ; Calcaneal spur, right foot M77.31 ; 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 and Edema, lower extremity R60.0 Assessments Encounter Date Diagnosis (ICD Code) Assessment Notes Treatment Notes Treatment Clinical Notes Section Notes 11/30/2024 Pain in right ankle and joints of right foot (ICD-10 - M25.571) 11/30/2024 Plantar fasciitis of right foot (ICD-10 - M72.2) 11/30/2024 Bursitis of right foot (ICD-10 - M77.51) 11/30/2024 Tinea unguium (ICD-10 - B35.1) 11/30/2024 Pain in right toe(s) (ICD-10 - M79.674) 11/30/2024 Pain in left toe(s) (ICD-10 - M79.675) 11/30/2024 Pain in right foot (ICD-10 - M79.671) 11/30/2024 Calcaneal spur, right foot (ICD-10 - M77.31) 11/30/2024 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) 11/30/2024 Edema, lower extremity (ICD-10 - R60.0) Plan Of Treatment Next Appt Details Follow Up: prn, Reason: Provider Name:Latasha Monreal Chad , 06/07/2025 08:00:00 AM, [address] [place], [address], Progress Notes * Natalie CONNORSaritaOB:1960 (64 yo F)Acc No.[id number]:11/30/2024 Progress Note Patient:?Jen CONNORanne Provider:?Latasha Bonilla DPM :1960???Age:64 Y???Sex:Female D ate:11/30/2024 Address:[address] [place], [place] [id number] Pcp:Bayron Olsen MD Subjective: * Chief Complaints: * ???Painful nail(s) aggrevate d by shoes causing difficulty standing/walkingHeel painSwelling * HPI: ???Painful Nails:?Pt States Last PCP Visit:?Date:?10/26/2024 ?Treatments:?Topical Antifungal, relates incomplete sporatic adherence to recom tx, Ciclopirox 8% Solution.?Heel pain:?Location:?Proximal plantar aspect of Heel, RIGHT.?Duration:?several weeks.?Course:?, unchanged.?Aggravated:?standing, walking, walking first thing in the morning/after rest.?Treatments:?rest,chnage in shoes,?Pt relates non compliance with recommended treatment plan,?.?Swelling:?Location:?Both feet/leg.?Duration:?, several months.?Course:?, improved.?Treatment:?compression stockings, states intermittent use- when she wears them they do work.? * ROS:?General/Constitutional:?Nausea?denies.?Vomiting?denies.?Hunger Thirst?denies.?Loss appetite?denies.?Chills?denies.?Fatigue?denies.?Fever?denies.?Night Sweats?denies.?Unexplained weight loss?denies.?Unexplained weight gain?denies.?HEENTM:?Dentures?denies.?Dizziness?denies.?Glasses/contacts?admits.?Retinopathy?de nies.?Blurred/double vision?denies.?TMJ?denies.?Discharge/drainage?denies.?Implants?denies.?Sore throat?denies.?Dental implants?denies.?Hard of hearing ?denies.?Difficulty chewing/swallowing/speaking?denies.?Nose bleeds?denies.?Sore mouth?denies.?Respiratory:?On Oxygen?denies.?Pneumonia/pleurisy?denies.?Bronchitis?denies.?Emphysema?denies.?C oughing?denies.?Cough blood?denies.?Shortness of breath?denies.?Wheezing?denies.?Cardiovascular:?Pacemaker?denies.?MVP?denies.?WPW?denies.?CHF?denies.?Heart attack?denies.?Septal defect?denies.?Rapid beat?denies.?Chest pain ?denies.?Atrial Fib.?denies.?Murmur/Palpitations?denies.?Gastrointestinal:?Hemorrhoids?denies.?Stomach/Abdominal pain?denies.?Dark blood stool?denies.?Irritable bowel ?denies.?Constipation?denies.?Diarrhea?denies.?Hematology:?Swelling?denies.?Clots?denies.?Varicose Veins?denies.?Bruising?denies.?Bleeding problem?denies.?Genitourinary:?Blood urine?denies.?Frequent/Painfu/urination/bladder control?denies.?Kidney stones?denies.?Infection (UTI)?denies.?Nephropathy?denies.?sex trans dis (STD)?denies.?Prostate?denies.?Musculoskeletal:?Hammertoes?denies.?Bunions?denies.?Back Pain?denies.?Muscle Cramps/ Resting?denies.?Muscle cramps / walking?denies.?Generalized aches and pains?admits.?Weakness?denies.?Integ.:?Garcia?denies.?Scars?denies.?Corns/calluses?admits.?Ingrown nails?denies.?Painful nails?,admits.?Open Sores?denies.?Rashes?denies.?Neurologic:?Difficulty sleeping?denies.?Brain disorder?denies.?Numbness?denies.?Balance trouble?denies.?Confusion?denies.?Fainting/blackouts?denies.?Tingling?denies.?Tr emors?denies.? * Medical History:? * Surgical History:? x3 * Hospitalization/Major Diagno stic Procedure:?Denies Past Hospitalization * Family History:?Mother: dece ased, diagnosed with Unspecified essential hypertension, Family history of arthritis.?Father: , stroke, heart attack, diagnosed with Diabetic [...] 1-2 cups per day,. ?Children: yes, 3. ?Exercise: no. ?Marital status: . 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 * Medications:?TakingLecithin Fish Oil Turmeric Glucosamine Caltrate 600+D Multivitamin Vitamin E Allopurinol 300 MG Tablet 1 tablet Orally Once a day Atorvastatin Calcium 20 MG Tablet 1 tablet Orally Once a day amLODIPine Besylate 5 MG Tablet 1 tablet Orally Once a day Valsartan-hydroCHLOROthiazide 160-12.5 MG Tablet 1 tablet Orally Once a day Night Splint AFO - L1930 1 wear at rest Compression Stockings 20-30mm Hg closed toe- knee high 1 pair wear daily Ciclopirox 8 % Solution 1 application Externally Once a day Medication List reviewed and reconciled with the patientTaking Lecithin Taking Fish Oil Taking Turmeric Taking Glucosamine Taking Caltrate 600+D Taking Multivitamin Taking Vitamin E Taking Allopurinol 300 MG Tablet 1 tablet Orally Once a day Taking Atorvastatin Calcium 20 MG Tablet 1 tablet Orally Once a day Taking amLODIPine Besylate 5 MG Tablet 1 tablet Orally Once a day Taking Valsartan-hydroCHLOROthiazide 160-12.5 MG Tablet 1 tablet Orally Once a day Taking Night Splint AFO - L1930 1 wear at rest Taking Compression Stockings 20-30mm Hg closed toe- knee high 1 pair wear daily Taking Ciclopirox 8 % Solution 1 application Externally Once a day Medication List reviewed and reconciled with the patient * Allergies:?Lisinopril: cough yes[Allergies Verified] Objective: * Vitals:?Ht: 5ft 2in, Wt:205, BMI:37.49, Shoe size: 7-8, BP:144/85mm Hg, Ht-cm: 157.48 cm, Wt-k.99 kg. * Examination: ???General Examination: ?GENERAL APPEARANCE:?Reveals a pleasant, alert, well nourished, well- developed, well hydrated individual, who demonstrates proper attention to hygiene/body habitus, and is in no acute distress, Pt serves as own historian for office visit today.?ORIENTED:?person, place, and time.?Heel Pain: ?INSPECTION:? Pain on Palpation to Plantar Fascia med. and central bands, intrinsic musc., infra-calcaneal bursa, and med calc tubercle , RIGHT foot, States approximately 50 % LESS, No pain: posterior/superior heel, achilles bursa/tendon, sinus tarsi, peroneals, or with lateral heel compression; no limited STJ ROM, calor, or ecchymosis, unchanged from previous visit per pt.?Vascular: ?DP PULSES (B):?12/02, B/L.?PT PULSES (B):?12/02, B/L.?CAPILLARY FILL TIME:?immediate, all digits, B/L.?TROPHIC CONDITION-TEXTURE/ELASTICITY/TURGOR/HAIR GROWTH (B):?normal, B/L.?TEMPERTURE GRADIENT (C):?normal, warm to cool, proximal to distal, B/L, B/L.?EDEMA (C):?12/02, , B/L , non-pitting.?ISIDRO'S SIGN:?absent, B/L.?PALPABLE CORDS:?absent, B/L.?Orthopedic: ?MUSCLE STRENGTH:?5/5 all groups in a symmetrical fashion , B/L.?GAIT ABNORMALITY:?Pronated , abducted angle and base of gate , B/L , antalgic.?FOOT MORPHOLOGY:?Pes Planus structure , Rigid , B/L , Pes Planus structure, Decreased Ankle joint dorsiflexion ROM, knee extended.?TAILOR'S BUNION:?Prominent 5th MTH/MPJ, RIGHT.?DIGITAL DEFORMITIES:?Digital contracture, PIPJ, 2-5 B/L, incompl-reducible with WB, or to push-up test, no over, nor underlapping , 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 Plan: * Treatment: * Procedure Codes:? * Preventive Medicine:? ??Counseling:?Discussion:?-14: [...] have encouraged the patient to call the office.?BioMech.:?I discussed the Pts foot biomechanics with them and how it relates to their problem.?Edema:?Discussed other tx options for the patients condition, The patient wishes to continue with the present treatment plan for their condition given its success.?F/U Fungal nails:?Reviewed with the patient the time [...] nitrate used for any petechial bleeding as necessary.?Stretching Exercises:?Stretching and deep tissue massage exercises for the patients injury/diagnosis were discussed and demonstrated to the pt again. Recomm. They be performed daily.? ??Screening/Special Tests:?Fall Risk?Screening:?One fall with injury in the past year * Follow Up:?prn * Images: * Sign off status: Completed true * Provider:Naveen Bonilla DPM Date:?2024 Generated for Sandipi yossi/Audra/eTransmitting on:?04/13/2025 10:42 AM EDT History and Physical Notes * HPI (History of Present Illness) Category Sub-Category Detail Notes Category Not es Heel pain Duration: several weeks Location: Proximal plantar asp ect of Heel, RIGHT Aggravated: standing, walking, w alking first thing in the morning/after rest Course: , unchanged Treatments: rest,chnage in shoes , Pt relates non compliance with recommended treatment plan, Painful Nails Treatments: Topical Antifung al, relates incomplete sporatic adherence to recom tx, Ciclopirox 8% Solution Pt States Last PCP Visit: Date:: 10/26/2024 Swelling Location: Both feet/leg Duration: , several months Course: , improved Treatment: compression stocking s, states intermittent use- when she wears them they do work Examination Category Sub-Category Detail Notes Category Not [...] Partial Syndactyly noted 2,3 b/l TAILOR'S BUNION: Prominent 5th MTH/MP J, RIGHT MUSCLE STRENGTH: 5/5 all groups in a symmetrical fashion , B/L General Examination GENERAL APPEARANCE: Reveals a pleasant, alert, well nourished, well-developed, well hydrated individual, who demonstrates proper attention to hygiene/body habitus, and is in no acute distress, Pt serves as own historian for office visit today ORIENTED: person, place, and t romina Vascular DP PULSES (B): 12/02, B/L PT PULSES (B): 4, B/L CAPILLARY FILL TIME: immediate, all digi ts, B/L TEMPERTURE GRADIENT (C): normal, warm to cool, proximal to distal, B/L, B/L TROPHIC CONDITION-TEXTURE/ELASTICITY/TURGOR/HAIR GROWTH (B): normal, B/L EDEMA (C): 1/4, , B/L , non-pit ting ISIDRO'S SIGN: absent, B/L PALPABLE CORDS: absent, B/L Nails NAILS are: Elongated, overg rown, dystrophic, lytic, greater than 3mm thick, discolored and friable with crumbly malodorous subungual debris, with pain on palpation , TA, T1, T2, T3, T4, T5, T6, T7, T8, T9 Heel Pain INSPECTION: Pain on Palpatio n to Plantar Fascia med. and central bands, intrinsic musc., infra-calcaneal bursa, and med calc tubercle , RIGHT foot, States approximately 50 % LESS, No pain: posterior/superior heel, achilles bursa/tendon, sinus tarsi, peroneals, or with lateral heel compression; no limited STJ ROM, calor, or ecchymosis, unchanged from previous visit per pt
--- OUTSIDE RECORDS SUMMARY | 2025-04-13 10:42 | XMS_ITS | Continuity of Care Document ---
Author Organization [facility] Address [address] [place] [address] Phone Care Team Providers Care Web Database Developer Name Role Phone Robson ARELLANO FACS RVT Krystal SEARS Unavailable Unavailable Allergies, Adverse Reactions, Alerts Substance Reaction Status Criticality lisinopril Active No Information Medications Medication Instructions Dosage Effective Dates (start - stop) Status Comments allopurinol 100 mg tablet - Active valsartan 40 mg tablet - Act julieth atorvastatin 20 mg tablet - Active Procedures Procedure Date Office/Outpt E&M Established 15 Mins Jul Duplex Scan-extrem Veins; Uni/ Varithena, Multiple Truncal Veins Same L eg Endovenous Laser, 1st Vein Office/Outpt E&M Established 15 Mins March Duplex Scan-extrem Veins; Comp Office/Outpt E&M Established 15 Mins March Advance Directives Directive Yes / No Effective Date File Name No Information Encounters Encounter Description Practice Location Reason(s) For Visit Diagnoses Date Provider Providers Copied on Encounter Office/Outpt E&M Established 15 Mins [facility], [address] [place] [address] [address], [place], [id number], [place] tel:[phone] R [facility] Chronic venous hypertension w oth comp of r low extrem Sep- 3 Robson ARELLANO FACS RVT RPVI K Ed. [address], [address], [place], [address], [place]. [phone] Referring Provider: Bayron Olsen MD, [address], [place], [address]. tel:[phone] [facility], [address] [place] [address] [address], [place], [id number], [place] tel:[phone] [facility] [place] Encntr for f/u exam aft trtmt for cond oth than malig neoplmPain in right leg 3 Robson ARELLANO FACS T ORION Ward. [address], [address], [place], [address], [place]. [phone] Referring Provider: Bayron Olsen MD, [address], [place], [address]. tel:[phone] [facility], [address] [place] [address] [address], [place], [id number], [place] tel:[phone] [facility] [place] Chronic venous hypertension w inflammation of r low extrem 3 Robson ARELLANO FACS T ORION Ward. [address], [address], [place], [address], [place]. tel:[phone] Referring Provider: Bayron Olsen MD, [address], [place], [address]. tel:[phone] [facility], [address] [place] [address] [address], [place], [id number], [place] tel:[phone] [facility] [place] Pain in right leg 3 Robson ARELLANO FACS T ORION [address]. [address], [address], [place], [address], [place]. tel:[phone] Referring Provider: Bayron Olsen MD, [address], [place], [address]. tel:[phone] Office/Outpt E&M Established 15 Mins [facility], [address] [place] [address] [address], [id number], [place] tel:[phone] [facility] [place] Chronic venous htn w inflammation of bilateral low extrm 3 Robson [address], [address], [place], [address], [place]. tel:[phone] Referring Provider: Bayron Olsen MD, [address], [place], [address]. tel:[phone] [facility], [address] [place] [address] [address], [id number], [place] tel:[phone] [facility] [place] Pain in right legPain in left legVenous insufficiency (chronic) (peripheral) 3 Robson [address], [address], [place], [address], [place]. tel:[phone] Referring Provider: Bayron Olsen MD, [address], [place], [address]. tel:[phone] Office/Outpt E&M Established 15 Mins [facility], [address] [place] [address] [address], [id number], [place] tel:[phone] [facility] [place] Chronic venous htn w oth comp of bilateral low extrm 3 Robson ARELLANO FACS Joanna Ward. [address], [address], [place], [address], [place]. tel:[phone] Referring Provider: Bayron Olsen MD, [address], [place], [address]. tel:[phone] Family History Family Member Type Diagnosis Age At Onset No Information Payers Payer name Insurance type Covered libertarian ID Jessica miranda(s) [facility] [id number] Social History Type Description Quantity Date Captured Comments Alcohol Use Details No Caffeine Use Details Unknown Tobacco Use Status Never smoked tobacco 2022 Smoking Status Never smoker Non-Smoking Tobacco Use Details : No Details Available : No Details Available Sex Female Chief Complaint And Reason For Visit No Information Reason For Referral Reason For Referral No Information History Of Present Illness Encounter Date Complaint History Of Prese nt Illness No Information Functional Status Date Functional Assessmen t No Information Instructions Date Instruction Additional Infor mation Patient education booklet given Related to Chrn Vns Hyprtnsn w/Compl (Pain Edema Swelling); RIGHT Patient education booklet given Related to Chrn Vns Hyprtnsn w/Compl (Pain Edema Swelling); BILAT Assessments Type Assessment Date assessment Chronic venous hypertension w ot h comp of r low extrem Patient Care Teams Name Effective Dates (start - stop) Status Members No Information
--- OUTSIDE RECORDS SUMMARY | 2025-04-13 10:42 | XMS_ITS ---
Author Organization [facility] giselle Wis[place] Address [address] [facility] [place] [address] Care Team Providers Care Hatchery Manager Name Role Phone Raúl ARELLANO, Bayron Primary Care Provider Joni Bonilla Latasha Unavailable [phone] Allergies Allergen (clinical drug ingredient) Drug/Non Drug Allergy documented on EMR Reaction Allergy Type Onset Date Status lisinopril Lisinopril cough Drug Allergy Activ e REASON FOR VISIT Foot pain, Painful nail(s) aggrevated by shoes causing difficulty standing/walking, Heel pain Medications Medication SIG (Take, Route, Frequency, Duration) Notes Start Date End Date Status Valsartan-hydroCHLOROthiazi de 160-12.5 MG 1 tablet Orally Once a day for 30 day(s) Active Night Splint AFO - L1930 1 wear at rest for 30 days Active Allopurinol 300 MG 1 tablet Orally Once a day for 30 day(s) Active Atorvastatin Calcium 20 MG 1 tablet Oral ly Once a day for 30 day(s) Active amLODIPine Besylate 5 MG 1 tablet Orally Once a day for 30 day(s) Active Turmeric Active Glucosamine Active Caltrate 600+D Activ e Multivitamin Active Vitamin E Active Lecithin Active Fish Oil Active Social History Tobacco Use: Social History [...] other tobacco user? 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 Assessments Encounter Date Diagnosis (ICD Code) Assessment Notes Treatment Notes Treatment Clinical Notes Section Notes 12/02/2023 Hypertrophy of bone, right ankle and foot (ICD-10 - M89.371) 12/02/2023 Plantar fasciitis of right foot (ICD-10 - M72.2) 12/02/2023 Metatarsalgia of right foot (ICD-10 - M77.41) 12/02/2023 Pain in right ankle and joints of right foot (ICD-10 - M25.571) 12/02/2023 Arthritis (ICD-10 - M19.90) 12/02/2023 Bursitis of right foot (ICD-10 - M77.51) 12/02/2023 Tinea unguium (ICD-10 - B35.1) 12/02/2023 Pain in right toe(s) (ICD-10 - M79.674) 12/02/2023 Pain in left toe(s) (ICD-10 - M79.675) 12/02/2023 Pain in right foot (ICD-10 - M79.671) 12/02/2023 Calcaneal spur, right foot (ICD-10 - M77.31) 12/02/2023 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) Plan Of Treatment Next Appt Details Follow Up: prn, Reason: Provider Name:Latasha Bonilla , 06/07/2025 08:00:00 AM, [address] [place], [address], Progress Notes * Richard CONNOROB:1960 (63 yo F)Acc No.[id number]:12/02/2023 Progress Note Patient:?Ciarra Connor Provider:?Latasha Bonilla DPM :1960???Age:63 Y???Sex:Female D ate:12/02/2023 Address:[address] [place] [address] [id number] Pcp:Bayron Olsen MD Subjective: * Chief Complaints: * ???Foot painPainful nail(s) aggrevated by shoes causing difficulty standing/walkingHeel pain * HPI: ???Foot Pain:?Nature:?aching , tenderness , burning.?Location:?Midfoot , RIGHT.?Duration:?several years.?Onset:?gradual , denies trauma.?Course:?improved , at 90%.?Aggrevated:?any pressure , standing , walking.?Treatments:?soaks, padding , innersoles.?Severity/Quality:?moderate.?Misc:?pt still has not purchased new shoes.?Painful Nails:?Pt States Last PCP Visit:?Date:?09/17/2023 ?Treatments:?Topical Antifungal.?Heel pain:?Location:?Proximal plantar aspect of Heel, RIGHT.?Duration:?several weeks.?Course:?improved , at approximately 50 %.?Aggrevated:?standing, walking, walking first thing in the morning/after rest.?Treatments:?rest.? * ROS:?General/Constitutional:?Nausea?denies,?.?Vomiting?denies,?.?Hunger Thirst?denies,.?Loss appetite?denies,.?Chills?denies,.?Fatigue?denies.?Fever?denies.?Night Sweats?denies,?.?Unexplained weight loss?denies,?.?Unexplained [...] less (1 point) ?Points?1 ?Interpretation?Negative ???Miscellaneous:?Caffeine: yes, frequency:, 2-3 cups per day. ?Children: yes, 3. ?no Exercise. ?Marital status: . ?Occupation: [employer]. * Medications:?TakingLecithin Fish Oil Turmeric Glucosamine Caltrate [...] * Vitals:?Ht: 5ft 2in, Wt:205, BMI:37.49, Shoe size:7-8. * Examination: ???Orthopedic: ?MUSCLE STRENGTH:?5/5 all groups [...] compression; no limited STJ ROM, calor, or ecchymosis.? 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 Plan: * Treatment: * Procedure Codes:? * [...] have encouraged the patient to call the office.?F/U Fungal nails:?Reviewed with the patient the time [...] nitrate used for any petechial bleeding as necessary.?F/u Visit:?The Pt. was counseled on the remaining treatment options for the metatarsalgia and importance of adherence to recomm; the Pt wishes to continue present protocol longer and states she will look into recomm footwear pt referred to [facility] for proper size and style.?Heel pain:?Discussed other [place] options for the patients condition, Given recent successful results to treatment, the patient wishes to continue with the present plan for their condition however she states she will be more complaint with stretching exercises and use of the night splint.? * Follow Up:?prn * Images: * Sign [...] Antifungal Pt States Last PCP Visit: Date:: 09/17/2023 Foot Pain Nature: aching , tenderness , burnin g Location: Midfoot , RIGHT Duration: several years Onset: gradual , denies tra jose manuel Course: improved , at 90% Aggravated: any pressure , stand ing , walking Treatments: soaks, padding , inn ersoles Severity/Quality: moderate Misc: pt still has not pur chased new shoes Examination Category Sub-Category Detail Notes Category Not [...] groups in a symmetrical fashion , B/L Nails NAILS are: Elongated, overg rown, [...] compression; no limited STJ ROM, calor, or ecchymosis
--- OUTSIDE RECORDS SUMMARY | 2025-04-13 10:42 | XMS_ITS ---
Author Organization Bayron Olsen MD Address [address] [place] [id number] Care Team Providers Care Time Lock Expert Name Role Phone Bayron Olsen Primary Care Provider [phone] REASON FOR VISIT FASTING LABS Encounters Encounter Location Date Provider Diagnosis Bayron Olsen MD [address] [place] [address] [place] [phone] 04/13/2025 Bayron Olsen Blood tests for rout ine general physical examination Z00.00 ; Essential hypertension I10 ; Prediabetes R73.09 and Pure hypercholesterolemia E78.00 Assessments Encounter Date Diagnosis (ICD Code) Assessment Notes Treatment Notes Treatment Clinical Notes Section Notes 04/13/2025 Blood tests for rout ine general physical examination (ICD-10 - Z00.00) 04/13/2025 Essential hypertensi on (ICD-10 - I10) 04/13/2025 Prediabetes (ICD-10 - R73.09) 04/13/2025 Pure hypercholesterolemia (ICD-10 - E78.00) Plan Of Treatment Pending Test Test Name Order Date Complete Blood Count Auto Diff 5 Comprehensive [place]. Panel Fast 5 Lipid Panel 04/13/2025 Microalbumin, Random 04/13/2025 Hemoglobin A1c 04/13/2025 UA ClnCatch+Micro w/rflx Cult 04/13/2025 Next Appt Details Provider Name:Bayron osorio, 04/19/2025 08:00:00 AM, [address] [place] [address], Suite [facility], [place], [place], [phone], Progress Notes * Ciarra CONNOR FDOB: 8 (65 yo F)Acc No.[id number]:04/13/2025 Progress Note Patient:?Ciarra CONNOR Provider:?Bayron Olsen MD :1960???Age:65 Y???Sex:Female D ate:04/13/2025 Address:[address] [place], [place] [phone] Subjective: * Chief Complaints: * ???1. FASTING LABS. * Medical History:? Objective: * Vitals:? Assessment: * Assessment: 1.?Blood tests for routine g eneral physical examination - Z00.00 (Primary)???2.?Essential hypertension - I10???3.?Prediabetes - R73.09???4.?Pure hypercholesterolemia - E78.00??? Plan: * Treatment: 2.?Essential hypertension?LAB: Complete Blood Count Auto Diff ?LAB: Comprehensive [place]. Panel Fast ?LAB: Lipid Panel ?LAB: Microalbumin, Random ?LAB: Hemoglobin A1c ?LAB: UA ClnCatch+Micro w/rflx Cult 3.?Prediabetes?LAB: Complete Blood Count Auto Diff ?LAB: Comprehensive [place]. Panel Fast ?LAB: Lipid Panel ?LAB: Microalbumin, Random ?LAB: Hemoglobin A1c ?LAB: UA ClnCatch+Micro w/rflx Cult 4.?Pure hypercholesterolemia ?LAB: Complete Blood Count Auto Diff ?LAB: Comprehensive [place]. Panel Fast ?LAB: Lipid Panel ?LAB: Microalbumin, Random ?LAB: Hemoglobin A1c ?LAB: UA ClnCatch+Micro w/rflx Cult * * The named appointment provid er may or may not be the originator of this progress note, and it is not deemed complete until electronically signed by the appointment provider. Sign off status: Pending * Provider:?Bayron Olsen MD Date:?0 04/13/2025 Generated for Latoya sy/Audra/Zahraaitting on:?04/13/2025 10:41 AM EDT
--- OUTSIDE RECORDS SUMMARY | 2025-04-13 10:42 | XMS_ITS ---
Author Organization Bayron Olsen MD Address [address] [place], [place] [phone] Care Team Providers Care Machine Room Engineer Name Role Phone Bayron Olsen Primary Care Provider Results Component Value Reference Range Notes Liver Panel Reviewed date:10/12/2024 12:55:58 PM Interpretation: Performing Lab:[facility], [address] [place] [phone] Notes/Report: Bilirubin Total 0.7 0.0-1.0 mg/dL Bilirubin Direct 0.3 0.0-0.5 mg/dL Aspartate Amino Transferase 31 5-31 U/L Alanine Aminotransferase 34 0-31 U/L Total Protein 7.0 6.5-8.0 g/dL Albumin Level 4.3 3.5-5.0 g/dL Alkaline Phosphatase 103 39-117 U/L Glucose Fasting Reviewed date:10/12/2024 12:53:52 PM Interpretation: Performing Lab:[facility], [address] [place] [phone] Notes/Report: Glucose Fasting 95 60-99 mg/dL Lipid Panel with Reflex Reviewed date:10/12/2024 12:56:08 PM Interpretation: Performing Lab:[facility], [address] [place] [phone] Notes/Report: Triglycerides 81 <150 mg/dL Desirable Triglyceride: [...] A1c Reviewed date:10/12/2024 03:16:41 PM Interpretation: Performing Lab:[facility], [address] [place] [phone] Notes/Report: Hemoglobin A1c % 5.7 <6.0 % [...] average glucose, using the formula of the Q1C-Ifibcys Average Glucose study (ADAG), Diabetes Care, Vol.31,#8, Jun. 2007 REASON FOR VISIT fasting lipids Encounters Encounter Location Date Provider Diagnosis Bayron Olsen MD [address] [facility] [address] [place] [phone] 10/12/2024 Bayron Olsen Prediabetes R73.09 a nd Pure hypercholesterolemia E78.00 Assessments Encounter Date Diagnosis (ICD Code) Assessment Notes Treatment Notes Treatment Clinical Notes Section Notes 10/12/2024 Prediabetes (ICD-10 - R73.09) 10/12/2024 Pure hypercholesterolemia (ICD-10 - E78.00) Plan Of Treatment Next Appt Details Provider Name:Bayron osorio, 04/19/2025 08:00:00 AM, [address] [place] [address], Suite [facility], [place], [place], [phone], Progress Notes * Ciarra CONNOR FDOB: 8 (65 yo F)Acc No.[id number]:10/12/2024 Progress Note Patient:Ciarra BAUTISTA Provider:?Bayron Olsen MD :1960???Age:64 Y???Sex:Female D ate:10/12/2024 Address:[address] [place], [place] [phone] Subjective: * Chief Complaints: * ???1. Fasting lipids. * Medical History:? Objective: * Vitals:? Assessment: * Assessment: 1.?Prediabetes - R73.09 (Leilani jose)???2.?Pure hypercholesterolemia - E78.00??? Plan: * Treatment: 2.?Pure hypercholesterolemia ?LAB: Liver Panel (Collection Date & Time - 10/12/2024 07:15 AM) ?LAB: Glucose Fasting (Collection Date & Time - 10/12/2024 07:15 AM) ?LAB: Lipid Panel with Reflex (Collection Date & Time - 10/12/2024 07:15 AM) ?LAB: Hemoglobin A1c (Collection Date & Time - 10/12/2024 07:15 AM) * Procedure Codes:?13055 VENIP UNCT, ROUTINE* * * The named appointment provid er may or may not be the originator of this progress note, and it is not deemed complete until electronically signed by the appointment provider. Sign off status: Pending * Provider:?Bayron Olsen MD Date:?1 12/12/2023 Generated for Latoya sy/Audra/eTransmitting on:?04/13/2025 10:42 AM EDT
--- OUTSIDE RECORDS SUMMARY | 2025-04-13 10:42 | XMS_ITS | Patient Health Record ---
Author Organization [facility] giselle [place] Address [address] [facility] [place] [address] Care Team Providers Care Edge Beader Name Role Phone Bayron Olsen MD Primary Care Provider Latasha Jackson Unavailable [phone] Allergies Allergen (clinical drug ingredient) Drug/Non Drug Allergy documented on EMR Reaction Allergy Type Onset Date Status lisinopril Lisinopril cough Drug Allergy Activ e Reason For Referral No Information Medications Medication SIG (Take, Route, Frequency, Duration) Notes Start Date End Date Status Atorvastatin Calcium 20 MG 1 tablet Oral ly Once a day for 30 day(s) Active Allopurinol 300 MG 1 tablet Orally Once a day for 30 day(s) Active Vitamin E Active Multivitamin Active Fish Oil Active Compression Stockings 20-30mm Hg 1 pair wear daily for 30 days Active Lecithin Active Night Splint AFO - L1930 1 wear at rest for 30 days Active Valsartan-hydroCHLOROthiazi de 160-12.5 MG 1 tablet Orally Once a day for 30 day(s) Active amLODIPine Besylate 5 MG 1 tablet Orally Once a day for 30 day(s) Active Caltrate 600+D Activ e Glucosamine Active Turmeric Active Ciclopirox 8 % 1 application Mint Machine Operator ally Once a day for 30 06/08/2024 Active Social History Tobacco Use: Social History [...] Problem Status W/U Status Risk Notes Problem Arthritis (2142934) Arthritis (M19.90) Active confirmed Problem Plantar fasciitis of right foot (728500712645344 01) Plantar fasciitis of right foot (M72.2) Active confirmed Problem Interstitial myositis (72126143) 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) Active confirmed Vital Signs Blood pressure diastolic 85 mm Hg 11/30/2024 Height 5ft 2in in 11/30/2024 Blood pressure systolic 144 mm Hg 11/30/2024 Weight 205 lbs 11/30/2024 BMI 37.49 kg/m2 11/30/2024 Encounters Encounter Location Date Provider Diagnosis [address] [address] 06/08/2024 Latasha Black Hypertrophy of bone, right [...] foot M60.171 and Edema, lower extremity R60.[address] [address] 11/30/2024 Latasha Black Pain in right ankle [...] right ankle and foot (ICD-10 - M89.371) 11/30/2024 Pain in right ankle and joints of right foot (ICD-10 - M25.571) 11/30/2024 Plantar fasciitis of right foot (ICD-10 - M72.2) 11/30/2024 Bursitis of right foot (ICD-10 - M77.51) 06/08/2024 Plantar fasciitis of right foot (ICD-10 - M72.2) 11/30/2024 Tinea unguium (ICD-10 - B35.1) 06/08/2024 Metatarsalgia of right foot (ICD-10 - M77.41) 11/30/2024 Pain in right toe(s) (ICD-10 - M79.674) 06/08/2024 Pain in right ankle and joints of right foot (ICD-10 - M25.571) 06/08/2024 Arthritis (ICD-10 - M19.90) 11/30/2024 Pain in left toe(s) (ICD-10 - M79.675) 11/30/2024 Pain in right foot (ICD-10 - M79.671) 06/08/2024 Bursitis of right foot (ICD-10 - M77.51) 06/08/2024 Tinea unguium (ICD-10 - B35.1) 11/30/2024 Calcaneal spur, right foot (ICD-10 - M77.31) 11/30/2024 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) 06/08/2024 Pain in right toe(s) (ICD-10 - M79.674) 06/08/2024 Pain in left toe(s) (ICD-10 - M79.675) 11/30/2024 Edema, lower extremity (ICD-10 - R60.0) 06/08/2024 Pain in right foot (ICD-10 - M79.671) 06/08/2024 Calcaneal spur, right foot (ICD-10 - M77.31) 06/08/2024 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) 06/08/2024 Edema, lower extremity (ICD-10 - R60.0) Plan Of Treatment Next Appt Details Provider Name:Latasha Bonilla , 06/07/2025 08:00:00 AM, [address] [place], [address], Insurance Providers Payer Name Payer Address Payer Phone Subscriber Number Group Number Insured Name Patient Relationship to Insured Coverage Start Date Coverage End Date [facility] [address] [place] [id number] Ciarra Connor Self - patient is the insured Medical (General) History Medical History History ICD Code Back,Hip,and Knee pain Cholesterol covid-19 High blood pressure Gout torn meniscus Surgical History Surgery Date(Month/Year) x3
[2025-04-13 10:59] LABS: Basophils Absolute Auto 0.1 X10*3/uL (0.0-0.2); Basophils Percent Auto 0.8 % (0-2); Eosinophils Absolute Auto 0.2 X10*3/uL (0.0-0.4); Eosinophils Percent Auto 2.6 % (0-4); Hemoglobin 12.6 g/dl (12.0-16.0); Imm Gran Abs Auto 0.09 X10*3/uL (0.00-0.03); Imm Gran Pct Auto 1.2 % (0.0-0.4); Lymphocytes Absolute Auto 1.7 X10*3/uL (1.2-4.9); Mean Corpuscular HGB Conc 33.2 g/dl (31.0-35.0); Mean Corpuscular Hemoglobin 29.2 pg (27.0-33.0); Mean Corpuscular Volume 88.2 fL (80.0-98.0); Mean Platelet Volume 11.2 fL (9.4-12.3); Monocytes Absolute Auto 0.6 X10*3/uL (0.1-1.2); Monocytes Percent Auto 8.2 % (2-11); Neutrophils Percent Auto 65.2 % (45-73); Platelet Count 184 X10*3/uL (160-400); Red Blood Count 4.31 X10*6/uL (4.20-5.50); Red Cell Distribution Width 15.3 % (11.0-16.0); White Blood Count 7.7 X10*3/uL (4.8-10.8)
[2025-04-13 11:05] LABS: Appearance Urine Clear; Color Urine Yellow; Glucose Urine UA Negative (Negative); Leukocyte Esterase Urine Small (1+) (Negative); Nitrite Urine Negative (Negative); PH 6.5 (5.0-9.0); UMIC TRIGGER UACC YES; Urine Blood Negative (Negative); Urine Ketones Negative (Negative); Urine Protein Negative (Neg-Trace)
[2025-04-13 11:08] LABS: Estimated Average Glucose 120 mg/dL; Hemoglobin A1C 135.1541 umol/L; Hemoglobin A1c % 5.8 % (<6.0); Total Hemoglobin (HGBA1C) 3354.6421 umol/L
[2025-04-13 11:19] LABS: Bacteria Urine None Seen (None Seen); Hyaline Casts Urine 0-2 /LPF (0-2); RBC Urine 0-2 /HPF (0-2); UACC Culture Trigger YES; WBC Urine 0-5 /HPF (0-5)
[2025-04-13 11:29] LABS: Alanine Aminotransferase 23 U/L (0-31); Albumin Level 4.4 g/dL (3.5-5.0); Alkaline Phosphatase 91 U/L (39-117); Anion Gap 10 (12-20); Aspartate Amino Transferase 25 U/L (5-31); Bilirubin Total 0.6 mg/dL (0.0-1.0); Blood Urea Nitrogen 20 mg/dL (9-16); Calcium 10.1 mg/dL (8.4-10.2); Carbon Dioxide 30 mmol/L (22-29); Chloride 107 mmol/L (96-108); Cholesterol 156 mg/dL (<200); Estimated Glomerular Filt Rate > 60; Glucose Fasting 97 mg/dL (60-99); HDL Cholesterol 59 mg/dL (>40); LDL Cholesterol Calculated 84 mg/dL (<100); Potassium 4.1 mmol/L (3.3-5.1); Sodium 143 mmol/L (135-145); Total Protein 7.2 g/dL (6.5-8.0); Triglycerides 69 mg/dL (<150)
[2025-04-13 12:08] LABS: Creatinine Urine 96.03 mg/dL; Microalbum/Creatinine Ratio Ur 7.2 ug/mg cr (<30)
== END 2025-04-13 10:24 | disposition home or self-care (01) ==
LOC: HO.LNP 10:23
PROVIDERS: Visit Provider Internal Medicine
DX: Z00.00 Encounter for general adult medical examination without abnormal findings (principal); I10 Essential (primary) hypertension; R73.09 Other abnormal glucose; E78.00 Pure hypercholesterolemia, unspecified; R82.90 Unspecified abnormal findings in urine
CPT/HCPCS: 80053; 80061; 81001; 82043; 82570; 83036; 85025; 87086

== ENCOUNTER 2025-10-16 07:00 | Outpatient (REF) | payer OTHER, SELFPAY ==
[2025-10-16 12:05] LABS: Alanine Aminotransferase 33 U/L (0-31); Albumin Level 4.5 g/dL (3.5-5.0); Alkaline Phosphatase 109 U/L (39-117); Aspartate Amino Transferase 31 U/L (5-31); Cholesterol 152 mg/dL (<200); HDL Cholesterol 61 mg/dL (>40); Total Protein 7.0 g/dL (6.5-8.0); Triglycerides 58 mg/dL (<150)
[2025-10-16 13:18] LABS: Reflex LDLD? No
== END 2025-10-16 07:01 | disposition home or self-care (01) ==
LOC: HO.LNP 07:00
PROVIDERS: Visit Provider Internal Medicine
DX: R73.09 Other abnormal glucose (principal); E78.00 Pure hypercholesterolemia, unspecified
CPT/HCPCS: 80061; 80076; 82947; 83036